=== PATIENT | male | born 1940 | race Caucasian/White ===

== ENCOUNTER 2017-12-23 17:07 | Inpatient (IN) ==
[2017-12-23] MEDS ORDERED: Naloxone 0.4 MG/ML INJ IVP PRN (21:53)
[2017-12-23] MEDS ORDERED: Dextrose Gel 15 GM/37.5 ML TUBE PO PRN ×2 (21:57)
[2017-12-23] MEDS ORDERED: *HR* Dextrose 50 % in Water (Syg) 50 ML SYRINGE IVP PRN (21:57)
[2017-12-23] MEDS ORDERED: D5% in Water 1,000 ML IVC PRN (21:57)
--- NOTE | 2017-12-23 21:57 | Internal Med History&Physical ---
Date of Encounter: 12/23/17 Time of Encounter: 21:55 Internal Medicine - H&P: HPI Chief complaint: Start speech Admitted From: Direct Admit Plans for Post Hospital Care: Home History of present illness: Mr. 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 The patient gets home health attendant 5 days a week for about 2-3 hours. He lives alone and has family around. This morning his son called him around 9:30 AM and noted that the patient's speech was slowed but not slurred. His daughter left work around 11:00 and went to check on her father who noted that he also again had slowed speech. The father had felt more weak than usual. No numbness or tingling. The aide came in the afternoon after the daughter had left and cold his daughter stated that she also thinks that his speech is slowed. Because of that he ended up going to [facility] where he had his symptoms resolved by then. He was back to his normal self. He underwent a workup from [facility] including a CT head which is reportedly negative, however, I do not have the report of that upon transfer. He was hemodynamically stable there and underwent a workup that was mostly unremarkable including CBC and a CMP. He had troponins checked which came back elevated at 1.08. He had no chest pain whatsoever. He continued denies chest pain upon transfer here. EKG was done there which came back with no ST or T-wave changes. Denies any other symptoms such as headache, blurry vision, fever, chills, nausea, vomiting, chest pain, shortness of breath , abdominal pain, diarrhea, constipation, urinary symptoms, or neurological symptoms other than above. 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 He sees an music arranger for this and is on a couple of eyedrops. All Systems PM: A 10-system review of systems was performed and is negative for pertinent findings except as documented above in the HPI. Review of systems: All systems reviewed are negative except as mentioned above - Constitutional Vitals: Temp Pulse Resp BP Pulse Ox 98.5 F 61 15 170/71 98 12/23/17 20:14 12/23/17 20:14 12/23/17 20:14 12/23/17 20:14 12/23/17 20:14 Exam: GEN: NAD HEENT: AT, NC, No cyanosis, oral mucosa is moist, No JVD Lymphatics: No lymphadenoapthy Eyes: Extrocular muscles intact, anicteric CVS:RRR. S1, S2, No m/r/g RESP: CTAB ABD: Soft, NT, ND, +BS EXT: No edema, No rashes, 2+ DP NEURO: Nonfocal, CN II-XII intact, No focal motor or sensory deficits. Right pupil is dilated and slowly reactive. Patient has positive Romberg. His gait is slow and almost shuffling. Psych: Cooperative, Not anxious or depressed - Assessment and plan (1) Dysarthria Current Visit: Yes Status: Acute Assessment and plan: According to the family the patient had slowed speech. This is not evident on examination here. He has no focal neurological deficits other than positive Romberg which I suspect is also his baseline. The patient does have baseline weakness and is walker dependent. He was able to ambulate in the room with no issues on my exam however his ambulation was slow. We will get an MRI of brain while he is here. Check B12 and TSH. We will obtain records of a CT head that was done at [facility] which was reportedly negative. (2) NSTEMI (non-ST elevated myocardial infarction) Current Visit: Yes Status: Acute Assessment and plan: Troponins at [facility] was 1.08. EKG with no ST or T-wave changes. No chest pain. The patient was not given any aspirin. He took 81 mg aspirin today at home. We will given 3 baby aspirin now. Check troponins level now. Check EKG. Check echocardiogram. If troponins are elevated, I will start him on a heparin drip and consult cardiology. We will trend cardiac enzymes. Check lipid panel and A1c. (3) Diabetes mellitus Current Visit: Yes Status: Acute Assessment and plan: Insulin sliding scale. Accu-Cheks. 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 She is not exactly sure what treatment he has had. She says he has been diagnosed for couple years. (5) DVT prophylaxis Current Visit: Yes Status: Acute Assessment and plan: Heparin subcutaneous - Time Spent With Patient Total time spent is greater than 50% in coordination of care (as documented) at patient's floor/unit and/or counseling patient:
[2017-12-23] MEDS ORDERED: *HR* Heparin 5,000 UNIT/ML VIAL SQ SCH (22:00)
[2017-12-23 22:26] LABS: Basophils % 0.4 %; Eosinophils % 0.2 %; Hematocrit 37.6 % (37.5-50.1); Immature Granulocytes % 0.2 % (0-4); Lymphocytes # 1.1 K/mcL (0.6-4.6); Mean Corpuscular HGB Conc 34.6 g/dL (31.6-35.5); Mean Corpuscular Hemoglobin 31.4 pg (28.0-33.3); Mean Corpuscular Volume 90.8 fL (83.0-100.0); Mean Platelet Volume 9.5 fL (9.4-12.4); Monocytes # 0.8 K/mcL (0.0-1.3); Monocytes % 15.3 %; Neutrophils # 3.5 K/mcL (1.6-8.9); Platelet Count 165 K/mcL (140-400); Red Blood Count 4.14 M/mcL (4.19-5.50); Red Cell Distribution Width 12.8 % (11.5-14.5); Segmented Neutrophils % 63.9 %
[2017-12-23 22:28] LABS: Estimated Average Glucose 123 mg/dl; Hemoglobin A1C 5.9 %
[2017-12-23 22:31] LABS: INR 1.3; Prothrombin Time 13.8 Seconds (9.4-12.1)
[2017-12-23 22:43] LABS: BUN/Creatinine Ratio 21 (6-26); Blood Urea Nitrogen 18 mg/dL (8-23); Calcium 8.8 mg/dL (8.6-10.3); Carbon Dioxide 23 mEq/L (23-29); Chloride 105 mEq/L (98-107); Glucose 110 mg/dL (70-105); Osmolality,Calculated 287 (280-300); Potassium 3.5 mEq/L (3.5-5.1); Sodium 137 mEq/L (136-145); eGFR For African Americans > 60 (> 60); eGFR For Non-African Americans > 60 (> 60)
[2017-12-23 22:46] LABS: Chol/HDL Ratio 4.9 (0-4.9)
[2017-12-23 22:59] LABS: Thyroid Stimulating Hormone 1.547 mcIU/mL (0.340-5.600)
[2017-12-23] MEDS ORDERED: *HR* Heparin 5,000 UNIT/ML VIAL IVP ONE (23:06)
[2017-12-23] MEDS ORDERED: *HR* Heparin 5,000 UNIT/ML VIAL IVP PRN ×2 (23:06)
--- NOTE | 2017-12-23 23:10 | Event Note ---
Date of Encounter: 12/23/17 Time of Encounter: 23:[address] depression in leads V3, V4, V5 with varying degrees. Trops still elevated here at .68. Not as high as they were at [facility]. Will start a heparin drip and make NPO after midnight and ask cardiology to see.
[2017-12-23] MEDS ORDERED: Aspirin Enteric Coated 81 MG Tablet PO ONE (23:15)
[2017-12-24] MEDS: Heparin 25,000 UNIT/500 ML D5W 25,000 UNIT/500 ML BAG IVC SCH (00:14)
[2017-12-24 00:42] LABS: Basophils % 0.3 %; Eosinophils % 0.2 %; Hematocrit 35.1 % (37.5-50.1); Hemoglobin 12.3 g/dL (12.9-16.9); Immature Granulocytes % 0.2 % (0-4); Lymphocytes # 1.1 K/mcL (0.6-4.6); Lymphocytes % 17.5 %; Mean Corpuscular Hemoglobin 31.5 pg (28.0-33.3); Mean Platelet Volume 9.4 fL (9.4-12.4); Monocytes % 15.7 %; Neutrophils # 4.1 K/mcL (1.6-8.9); Platelet Count 157 K/mcL (140-400); Red Cell Distribution Width 12.8 % (11.5-14.5); Segmented Neutrophils % 66.1 %
[2017-12-24 00:50] LABS: INR 1.2; Prothrombin Time 13.5 Seconds (9.4-12.1)
[2017-12-24 01:01] LABS: BUN/Creatinine Ratio 23 (6-26); Blood Urea Nitrogen 19 mg/dL (8-23); Calcium 8.7 mg/dL (8.6-10.3); Carbon Dioxide 23 mEq/L (23-29); Chloride 105 mEq/L (98-107); Glucose 111 mg/dL (70-105); Magnesium 1.6 mg/dL (1.6-2.6); Osmolality,Calculated 285 (280-300); Potassium 3.5 mEq/L (3.5-5.1); Sodium 136 mEq/L (136-145); eGFR For African Americans > 60 (> 60); eGFR For Non-African Americans > 60 (> 60)
[2017-12-24] MEDS: Aspirin Enteric Coated 81 MG Tablet PO SCH (09:42)
[2017-12-24] MEDS: (Ezetimibe 10 MG) PO SCH (09:43)
[2017-12-24] MEDS: Insulin LISPRO 300 UNITS/3 ML VIAL SQ SCH ×4 (09:43→21:40)
--- NOTE | 2017-12-24 10:31 | Cardiology Consult Note ---
Date of Encounter: 12/24/17 Time of Encounter: 10:00 Assessment and Plan (1) Speech disturbance Current Visit: Yes Status: Acute Per cardiology: -Admitted with speech disturbance. -CT head Royer negative. -MRI pending -Management per primary service. Qualifiers: Speech disturbance type: unspecified speech disturbance Qualified Code(s): R47.9 - Unspecified speech disturbances (2) NSTEMI (non-ST elevated myocardial infarction) Current Visit: Yes Status: Acute Per cardiology: -Troponins 1.08 (royer), 0.68, 0.69, 0.49. -Denies chest pain. -No acute ischemic ECG changes. -On asa, heparin drip. NOt on beta afsaneh due to history of bradycardia. Not on statin due to intolerance. -TTE 2015 with LVEF 55-60%, mild concentric LVH, mild diastolic dysfunction, no segmental wall motion abnormalities. -Current TTE pending. Current MRI pending. -Continue heparin drip -If CVA/TIA ruled out, can consider LHC. -Will continue to monitor. Discussion w patient/family: The assessment and plan as outlined above was discussed with the patient and/or family members who expressed understanding and agreement. All questions were answered. Thank you for involving us in the care of your patient. Please call with any questions. Discussed and reviewed with History of Present Illness Consult date: 12/23/17 Requesting physician: Casi Dyer Consult reason: elevated troponin Chief complaint: slurred speech History of present illness: Mr. Lockwood is a 77 year old male with a relevant past medical history of hyperlipidemia, DM, hypothyroidism, guiilian-barre, peripheral neuropathy, vertigo. Per daughter, patient was on the phone with son who noted slurred speech and said it sounded "like dad was drunk." Son called daughter who then went and checked on her father. Daughter states his speech was different. Patient was also complaining of increased weakness for a few days. Patient denies chest pain or shortness of breath. Past Med Surg Social Fam HX - Past Medical History Attestation: Yes The following information was validated with the patient. Source: patient, old records reviewed, obtained from family Medical history: diabetes, hyperlipidemia Medications and Allergies Aspirin [Lo-Dose Aspirin EC] 81 mg PO DAILY 12/23/17 [History] Ezetimibe [Zetia] 10 mg PO DAILY 12/23/17 [History] Levothyroxine [Synthroid] 50 mcg PO DAILY 12/23/17 [History] Meclizine HCl [Verticalm] 25 mg PO QID 12/23/17 [History] metFORMIN [Glucophage] 500 mg PO BIDWM 12/23/17 [History] 3 Allergy/AdvReac Type Severity Reaction Status Date / Time simvastatin [From Zocor] AdvReac Dizziness Verified 12/23/17 22:20 All Systems Review: The remainder of the systems were reviewed and are negative - Constitutional Constitutional: weakness - Cardiovascular Cardiovascular: as per HPI - Neurological Neurological: abnormal speech Physical Examination Vital Signs, Last 4 Hours Temp Pulse Resp BP Pulse Ox 12/24/17 07:00 98.4 F 60 18 128/61 96 General: Conversant, No Apparent Distress HEENT: Atraumatic, Normocephaly, Mucus Membranes Moist Neck: No JVD, Normal carotid pulses Cardiac: Reg Rate and Rhythm, Normal S1 and S2, No Murmur Lungs: Normal Breath Sounds, No Wheeze, Rales, Rhonchi Neuro: Alert and responsive, No focal deficits noted Abdomen: Soft, Non-Tender Skin: No rashes noted on visualized skin Musculoskeletal: No Chest Wall Tenderness Extremities: No Clubbing, No Cyanosis, No Edema, Normal Pulses Results 12/24/17 00:24 12/24/17 00:24 Acetaminophen (Tylenol) 650 mg PO Q6HR PRN PRN Reason: Mild Pain/Fever Stop: 06/24/18 21:54 Aspirin (Aspirin Ec) 81 mg PO DAILY LAURITA Stop: 06/25/18 09:01 Last Admin: 12/24/17 09:42 Dose: 81 mg Dextrose/Water (Dextrose 50% (Syg)) 25 ml IVP AD PRN PRN Reason: Hypoglycemia Stop: 06/24/18 21:58 Glucagon (Glucagen) 1 mg IM ONCE PRN PRN Reason: Hypoglycemia Stop: 06/24/18 21:58 Glucose (Gluctose) 15 gm PO ONCE PRN PRN Reason: Hypoglycemia Stop: 06/24/18 21:58 Glucose (Gluctose) 30 gm PO ONCE PRN PRN Reason: Hypoglycemia Stop: 06/24/18 21:58 Heparin Sodium (Porcine) (Heparin) 4,000 unit IVP Q6HR PRN PRN Reason: SEE COMMENTS Stop: 06/24/18 23:07 Heparin Sodium (Porcine) (Heparin) 2,000 unit IVP Q6H PRN PRN Reason: SEE COMMENTS Stop: 06/24/18 23:07 Hydralazine HCl (Hydralazine) 10 mg IVP Q6HR PRN PRN Reason: Hypertension Stop: 06/24/18 21:58 Dextrose (Dextrose 5%) 1,000 mls @ 100 mls/hr IVC .Q10H PRN PRN Reason: HYPOGLYCEMIA Stop: 06/24/18 21:58 Heparin Sodium/Dextrose (Heparin 25,000 Unit/500 Ml D5w) 25,000 unit in 500 mls @ 18.528 mls/hr IVC .Q24H LAURITA; 12 UNIT/KG/HR PRN Reason: Protocol Stop: 06/24/18 23:16 Last Titration: 12/24/17 07:28 Dose: 12 unit/kg/hr, 18.528 mls/hr Insulin Human Lispro (Humalog) 0 units SQ HS LAURITA PRN Reason: Protocol Stop: 06/25/18 21:01 Insulin Human Lispro (Humalog) 0 units SQ TIDAC LAURITA PRN Reason: Protocol Stop: 06/25/18 07:31 Last Admin: 12/24/17 09:43 Dose: Not Given Levothyroxine Sodium (Synthroid) 50 mcg PO DAILY LAURITA Stop: 06/25/18 09:01 Last Admin: 12/24/17 09:42 Dose: 50 mcg Meclizine HCl (Antivert) 25 mg PO QID LAURITA Stop: 06/25/18 09:01 Last Admin: 12/24/17 09:42 Dose: 25 mg Naloxone HCl (Narcan) 0.4 mg IVP Q2MIN PRN PRN Reason: SEE COMMENTS Stop: 06/24/18 21:54 Pharmacy Profile Note (Patient Taking Own Medication) 0 each PO DAILY [facility] Stop: 06/25/18 09:01 Last Admin: 12/24/17 09:43 Dose: Not Given Laboratory Tests 12/23/17 12/24/17 12/24/17 22:09 00:24 00:24 Hgb 12.3 L Creatinine Troponin I 0.68 H* 0.69 H* 12/24/17 12/24/17 00:24 09:29 Hgb Creatinine 0.84 Troponin I 0.49 H* - Imaging and Cardiology Chest Xray: report reviewed Echo: pending, report reviewed - EKG Interpretation EKG results cardiology: personally reviewed (ECG with SR, HR 64.), other ( Telemetry reviewed with average HR previous 12 hours noted to be 61, SR.) Consult Discharge Plan - Plan Referrals: Lynette Lutz CNP [Primary Care Provider] - 01/01/18 12:30 pm
[2017-12-24] MEDS ORDERED: Perflutren Lipid Microsphere 1.3 ML in 0.9 % Sodium Chloride 8.7 ML IVP ONE (14:02)
--- NOTE | 2017-12-24 15:47 | Internal Med Progress Note ---
<Torres Rome - Last Filed: 12/24/17 16:45> Date of Encounter: 12/24/17 Time of Encounter: 09:00 - Assessment and plan (1) NSTEMI (non-ST elevated myocardial infarction) Current Visit: Yes Status: Acute Assessment and plan: No overt chest pain; possibly atypical presentation given patient's history of diabetes. Troponins at [facility] was 1.08; down trending x3 during present hospitalization. Repeat EKG with ST depressions in V3, V4, and V5. - Cardiology onboard. - On heparin infusion - TTE with interpretation pending. - NPO at midnight for possible LHC tomorrow; cardio team concerned of possible CVA which has been ruled unlikely with serial neuro exams and negative MRI. - Lipid panel checked; see labs. - Hgb A1c was 5.9%. (2) Dysarthria Current Visit: Yes Status: Acute Assessment and plan: Slow speech according to son and daughter. Patient has been generally weak and fatigued; does have baseline fatigue. Doubt true neurologic origin. No exams have been negative notwithstanding known chronic deficits. CT of the head was negative. MRI of the head was negative for acute infarctions; see report. MRI 12/24/17 1. No acute infarct or acute intracranial process identified. 2. 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 3. Mild diffuse cerebral volume loss and mild chronic small vessel ischemic changes. (3) Diabetes mellitus Current Visit: Yes Status: Acute Assessment and plan: Continue low dose SSI. Accu-Cheks. A1C check on current hospitalization was 5.9%. 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 Sees neurologist for this according to patient's daughter. Not acute. (5) DVT prophylaxis Current Visit: Yes Status: Acute Assessment and plan: On heparin infusion for NSTEMI - Time Spent With Patient Total time spent is greater than 50% in coordination of care (as documented) at patient's floor/unit and/or counseling patient: - Subjective Interval history: Reviewed HPI with patient and daughter. Patient states is generally been feeling fatigued in week over the last couple of days. Admission to hospital initially prompted by son who stated patient sounded like he was speaking slowly on a phone call. Patient denies having had any difficulty speaking, facial droop, focal motor or sensory deficits. Patient presently comfortable without acute complaints. - Constitutional Vitals: Temp Pulse Resp BP Pulse Ox 98 F 61 20 146/89 97 12/24/17 11:12/24/17 11:12/24/17 11:12/24/17 11:12/24/17 11:00 CONSTITUTIONAL: Alert and oriented X3, well-nourished, well appearing, in no apparent distress HEAD: Normocephalic; atraumatic. EYES: PER, no scleral icterus, no drainage, no conjunctival injection NOSE: The nose is normal in appearance without rhinorrhea Oropharynx: pink/moist, no tonsillar edema/erythema/exudates RESP: NRD without use of accessory musculature, CTA b/l with no wheezes/rales/ rhonchi CARD: Regular rhythm, without murmurs, rubs, or gallop ABD: grossly normal, soft, non-tender, no guarding/distention/rigidity SKIN: normal appearance, no pallor/diaphoresis,mottling,jaundice,cyanosis EXT: DP/Rad pulses 2+ and symmetrical; no lateralizing edema; no other lesions seen Neuro: cranial nerves III-XII grossly intact with the exception of light response to the left eye which is a chronic deficit. Motor sensory function intact across all extremity joints. Patient has 2+ reflexes to bilateral biceps tendons; hyporeflexive to patellar tendons. No ankle clonus. No dysdiadochokinesia. Normal qkigca-vzsh-czkiot test. PSYCH: appropriate mood/affect Internal Medicine: Result - Labs CBC & Chem 7: 12/24/17 00:24 12/24/17 00:24 Labs: Short CBC 12/23/17 12/24/17 Range/Units 22:09 00:24 WBC 5.5 6.2 (4.3-11.1) K/mcL Hgb 13.0 12.3 L (12.9-16.9) g/dL Hct 37.6 35.1 L (37.5-50.1) % Plt Count 165 157 (140-400) K/mcL Neutrophils # 3.5 4.1 (1.6-8.9) K/mcL BMP 12/23/17 12/24/17 22:09 00:24 Sodium 137 136 Potassium 3.5 3.5 Chloride 105 105 Carbon Dioxide 23 23 BUN 18 19 Creatinine 0.86 0.84 Glucose 110 H 111 H Calcium 8.8 8.7 Cardiac Enzymes 12/23/17 12/24/17 12/24/17 Range/Units 22:09 00:24 09:29 Troponin I 0.68 H* 0.69 H* 0.49 H* (< 0.04) ng/mL - ABG Interpretation ABG results: PT/INR, D-dimer PT 13.5 Seconds (9.4-12.1) H 12/24/17 00:24 - Impressions Impressions Brain MRI 12/24/17 10:06 IMPRESSION: 1. No acute infarct or acute intracranial process identified. 2. 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 3. Mild diffuse cerebral volume loss and mild chronic small vessel ischemic changes. D/ / Murali Waite MD / Murali Waite MD Interpreting Provider: Murali Waite MD Consult Discharge Plan - Plan Referrals: Lynette Lutz CNP [Primary Care Provider] - 01/01/18 12:30 pm <Joaquín Morales - Last Filed: 12/24/17 16:52> Date of Encounter: 12/24/17 - Assessment and plan (1) Diabetes mellitus Current Visit: Yes Status: Acute Qualifiers: Diabetes mellitus type: type 2 Diabetes mellitus custodial insulin use: without termite control technician use Diabetes mellitus complication status: with ophthalmic complications Diabetes mellitus complication detail: with other ophthalmic complication Qualified Code(s): 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 (2) Guillain Coughlin syndrome Current Visit: Yes Status: Acute (3) NSTEMI (non-ST elevated myocardial infarction) Current Visit: Yes Status: Acute (4) Dysarthria Current Visit: Yes Status: Acute (5) DVT prophylaxis Current Visit: Yes Status: Acute - Time Spent With Patient Total time spent is greater than 50% in coordination of care (as documented) at patient's floor/unit and/or counseling patient: - Constitutional Vitals: Temp Pulse Resp BP Pulse Ox 98.2 F 60 18 115/54 91 12/24/17 16:44 12/24/17 16:44 12/24/17 16:44 12/24/17 16:44 12/24/17 16:44 Internal Medicine: Result - Labs CBC & Chem 7: 12/24/17 00:24 12/24/17 00:24 Labs: Short CBC 12/23/17 12/24/17 Range/Units 22:09 00:24 WBC 5.5 6.2 (4.3-11.1) K/mcL Hgb 13.0 12.3 L (12.9-16.9) g/dL Hct 37.6 35.1 L (37.5-50.1) % Plt Count 165 157 (140-400) K/mcL Neutrophils # 3.5 4.1 (1.6-8.9) K/mcL BMP 12/23/17 12/24/17 22:09 00:24 Sodium 137 136 Potassium 3.5 3.5 Chloride 105 105 Carbon Dioxide 23 23 BUN 18 19 Creatinine 0.86 0.84 Glucose 110 H 111 H Calcium 8.8 8.7 Cardiac Enzymes 12/23/17 12/24/17 12/24/17 Range/Units 22:09 00:24 09:29 Troponin I 0.68 H* 0.69 H* 0.49 H* (< 0.04) ng/mL - ABG Interpretation ABG results: PT/INR, D-dimer PT 13.5 Seconds (9.4-12.1) H 12/24/17 00:24 - Impressions Impressions Brain MRI 12/24/17 10:06 IMPRESSION: 1. No acute infarct or acute intracranial process identified. 2. 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 3. Mild diffuse cerebral volume loss and mild chronic small vessel ischemic changes. D/ / Murali Waite MD / Murali Waite MD Interpreting Provider: Murali Waite MD - Attending Attestation I examined this patient and my medical decision-making was reviewed with the Resident Physician. I agree with the documented findings, disposition and treatment plan as described except to the extent set forth below. he is seen and examined at the bedside with family.. He is admitted and being managed for an STEMI, CVA has been ruled out by MRI. His main complaint is of weakness. Echocardiogram is pending, cardiology is following. He has no chest pain. Physical examination is negative for neurologic deficits, power at least 4/5 in all extremities, no speech deficits, chest is clear to auscultation, heart sounds S1-S2. Plan is to Continue heparin drip, add ACEI and Lipitor, follow ECHO, follow cardiology evaluation. No acute infarct per MRI. PTOT eval after LHC. NPO from [place]. Rest of details as in the resident physician's documentation
--- NOTE | 2017-12-24 16:20 | Electrocardiograph Report ---
[place] [id number] Test Date: 2017-12-23 Pat Name: Meagan Lockwood Department: 111 Room: [facility] Gender: M Captain Airline Pilot: [facility] : 1940 Requested By: Casi Dyer Order Number: [id number] Reading MD: Gavin Staton Measurements Intervals [place] Rate: 64 P: -10 [place]: 180 QRS: 15 QRSD: 96 T: 38 QT: 400 QTc: 410 Interpretive Statements SINUS RHYTHM Electronically Signed On 12-24-2017 16:18:25 EDT by Gavin Staton
[2017-12-24] MEDS: Cyanocobalamin (B-12) 1,000 MCG TABLET PO SCH (16:45)
[2017-12-24] MEDS: (Brimonidine Tartrate/Timolol [Combigan 0.2%-0.5% Eye) OP SCH (19:00)
[2017-12-24] MEDS: (Bimatoprost [Lumigan] 1 DROP) OP SCH (19:00)
[2017-12-25] MEDS: Heparin 25,000 UNIT/500 ML D5W 25,000 UNIT/500 ML BAG IVC SCH (03:35)
[2017-12-25 05:03] LABS: Basophils % 0.3 %; Eosinophils % 0.1 %; Hematocrit 35.1 % (37.5-50.1); Hemoglobin 12.2 g/dL (12.9-16.9); Immature Granulocytes % 0.3 % (0-4); Lymphocytes # 1.1 K/mcL (0.6-4.6); Lymphocytes % 15.2 %; Mean Corpuscular HGB Conc 34.8 g/dL (31.6-35.5); Mean Corpuscular Hemoglobin 31.4 pg (28.0-33.3); Mean Corpuscular Volume 90.5 fL (83.0-100.0); Mean Platelet Volume 9.8 fL (9.4-12.4); Monocytes # 0.7 K/mcL (0.0-1.3); Monocytes % 10.3 %; Neutrophils # 5.3 K/mcL (1.6-8.9); Platelet Count 155 K/mcL (140-400); Red Blood Count 3.88 M/mcL (4.19-5.50); Red Cell Distribution Width 12.8 % (11.5-14.5); Segmented Neutrophils % 73.8 %
[2017-12-25 05:22] LABS: BUN/Creatinine Ratio 21 (6-26); Blood Urea Nitrogen 21 mg/dL (8-23); Calcium 8.5 mg/dL (8.6-10.3); Carbon Dioxide 23 mEq/L (23-29); Chloride 106 mEq/L (98-107); Glucose 176 mg/dL (70-105); Osmolality,Calculated 293 (280-300); Potassium 4.1 mEq/L (3.5-5.1); Sodium 138 mEq/L (136-145); eGFR For African Americans > 60 (> 60); eGFR For Non-African Americans > 60 (> 60)
[2017-12-25] MEDS: Insulin LISPRO 300 UNITS/3 ML VIAL SQ SCH ×4 (07:42→21:13)
[2017-12-25] MEDS: Aspirin Enteric Coated 81 MG Tablet PO SCH (07:49)
[2017-12-25] MEDS: Cyanocobalamin (B-12) 1,000 MCG TABLET PO SCH (07:49)
[2017-12-25] MEDS: (Bimatoprost [Lumigan] 1 DROP) OP SCH (07:50)
[2017-12-25] MEDS: (Ezetimibe 10 MG) PO SCH (07:51)
[2017-12-25] MEDS: (Brimonidine Tartrate/Timolol [Combigan 0.2%-0.5% Eye) OP SCH (07:51)
--- NOTE | 2017-12-25 10:06 | Event Note ---
Date of Encounter: 12/25/17 Time of Encounter: 09:00 - Cardiology Event Note MRI reviewed with no acute findings. Discussed with primary service, ok for LHC. Plan for LHC today for NSTEMI. RIsks versus benefits of LHC explained to patient and family. States understanding and agreeable to proceed. Further recommendations pending LHC.
--- NOTE | 2017-12-25 11:16 | Internal Med Progress Note ---
<Torres Rome - Last Filed: 12/25/17 11:13> Date of Encounter: 12/25/17 Time of Encounter: 11:13 - Assessment and plan (1) NSTEMI (non-ST elevated myocardial infarction) Current Visit: Yes Status: Acute Assessment and plan: No overt chest pain; possibly atypical presentation given patient's history of diabetes. Troponins at [place] was 1.08; down trending x3 during present hospitalization. Repeat EKG with ST depressions in V3, V4, and V5. - Cardiology onboard. - On heparin infusion - TTE completed - NPO pending [facility] - Lipid panel checked; see labs. - Hgb A1c was 5.9%. ECHO: LVEF 60%. Mild concentric left ventricular hypertrophy. Mild left ventricular diastolic dysfunction. Normal right ventricular structure and function. Mild aortic regurgitation, mild mitral regurgitation, mild pulmonic regurgitation. No pulmonary hypertension. (2) Dysarthria Current Visit: Yes Status: Resolved Assessment and plan: Slow speech according to son and daughter. Patient has been generally weak and fatigued; does have baseline fatigue. Doubt true neurologic origin. No exams have been negative notwithstanding known chronic deficits. CT of the head was negative. MRI of the head was negative for acute infarctions; see report. MRI 12/24/17 1. No acute infarct or acute intracranial process identified. 2. 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 3. Mild diffuse cerebral volume loss and mild chronic small vessel ischemic changes. (3) Diabetes mellitus Current Visit: Yes Status: Acute Assessment and plan: Continue low dose SSI. Accu-Cheks. A1C check on current hospitalization was 5.9%. Pt is NPO, so will make no adjustments at this time to medications. 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 Sees neurologist for this according to patient's daughter. Not acute. (5) DVT prophylaxis Current Visit: Yes Status: Acute Assessment and plan: On heparin infusion for NSTEMI - Time Spent With Patient Total time spent is greater than 50% in coordination of care (as documented) at patient's floor/unit and/or counseling patient: - Subjective Interval history: Comfortable and bedside chair without any acute complaints. Family present with questions regarding imaging results; discussed MRI, CT, and ECHO findings. Pt is NPO with plan to perform LHC this afternoon. - Constitutional Vitals: Temp Pulse Resp BP Pulse Ox 98.2 F 59 16 111/53 96 12/25/17 07:03 12/25/17 07:03 12/25/17 07:03 12/25/17 08:01 12/25/17 08:01 CONSTITUTIONAL: Alert and oriented X3, well-nourished, well appearing, in no apparent distress HEAD: Normocephalic; atraumatic. EYES: PER, no scleral icterus, no drainage, no conjunctival injection NOSE: The nose is normal in appearance without rhinorrhea Oropharynx: pink/moist RESP: NRD without use of accessory musculature, CTA b/l with no wheezes/rales/ rhonchi CARD: Regular rhythm, without murmurs, rubs, or gallop SKIN: normal appearance, no pallor/diaphoresis,mottling,jaundice,cyanosis EXT: Rad pulses 2+ and symmetrical; no lateralizing edema; no other lesions seen Neuro: no facial asymmetry, speech deficits, or gross motor weakness in any extremity PSYCH: appropriate mood/affect Internal Medicine: Result - Labs CBC & Chem 7: 12/25/17 04:41 12/25/17 04:41 Labs: Short CBC 12/25/17 Range/Units 04:41 WBC 7.1 (4.3-11.1) K/mcL Hgb 12.2 L (12.9-16.9) g/dL Hct 35.1 L (37.5-50.1) % Plt Count 155 (140-400) K/mcL Neutrophils # 5.3 (1.6-8.9) K/mcL BMP 12/25/17 04:41 Sodium 138 Potassium 4.1 Chloride 106 Carbon Dioxide 23 BUN 21 Creatinine 0.98 Glucose 176 H Calcium 8.5 L - ABG Interpretation ABG results: PT/INR, D-dimer PT 13.5 Seconds (9.4-12.1) H 12/24/17 00:24 - Impressions Impressions Brain MRI 12/24/17 10:06 IMPRESSION: 1. No acute infarct or acute intracranial process identified. 2. 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 3. Mild diffuse cerebral volume loss and mild chronic small vessel ischemic changes. D/ / Murali Waite MD / Murali Waite MD Interpreting Provider: Murali Waite MD Echocardiogram 12/24/17 21:53 Impressions: LVEF 60%. Mild concentric left ventricular hypertrophy. Mild left ventricular diastolic dysfunction. Definity echo contrast was used. Normal right ventricular structure and function. Mild aortic regurgitation. Mild mitral regurgitation. Mild pulmonic regurgitation. No pulmonary hypertension. Left Ventricular Wall Motion: Rest Echo Findings All wall segments showed normal motion. Findings: Study Quality * Technically adequate exam. ECG Findings * Normal sinus rhythm. Left Ventricle * LVEF 60%. * Mild concentric left ventricular hypertrophy. * Basal sigmoid septum. * Mild left ventricular diastolic dysfunction. * Definity echo contrast was used. Right Ventricle * Normal right ventricular structure and function. Left Atrium * Normal left atrial size. Right Atrium * Normal right atrial size. Aortic Valve * Trileaflet aortic valve. * No aortic stenosis. * Mild aortic regurgitation. Mitral Valve * Mild mitral regurgitation. * Normal mitral valve structure. * No mitral stenosis. Tricuspid Valve * Tricuspid valve not well visualized. * Trace tricuspid regurgitation. Pulmonic Valve * Pulmonic valve is not well visualized. * No pulmonic stenosis. * Mild pulmonic regurgitation. Pulmonary Artery * Pulmonary artery not well visualized. Aorta * Normally sized aortic root. Pericardium * There is no pericardial effusion present. Interatrial Septum * No evidence of PFO by color Doppler. IVC * The IVC is not well evaluated. 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 (3) NSTEMI (non-ST elevated myocardial infarction) Current Visit: Yes Status: Acute (4) Dysarthria Current Visit: Yes Status: Resolved (5) DVT prophylaxis Current Visit: Yes Status: Acute - Time Spent With Patient Total time spent is greater than 50% in coordination of care (as documented) at patient's floor/unit and/or counseling patient: - Constitutional Vitals: Temp Pulse Resp BP Pulse Ox 98.5 F 64 16 146/58 96 12/25/17 11:33 12/25/17 11:33 12/25/17 11:33 12/25/17 11:33 12/25/17 11:33 Internal Medicine: Result - Labs CBC & Chem 7: 12/25/17 04:41 12/25/17 04:41 Labs: Short CBC 12/25/17 Range/Units 04:41 WBC 7.1 (4.3-11.1) K/mcL Hgb 12.2 L (12.9-16.9) g/dL Hct 35.1 L (37.5-50.1) % Plt Count 155 (140-400) K/mcL Neutrophils # 5.3 (1.6-8.9) K/mcL BMP 12/25/17 04:41 Sodium 138 Potassium 4.1 Chloride 106 Carbon Dioxide 23 BUN 21 Creatinine 0.98 Glucose 176 H Calcium 8.5 L - ABG Interpretation ABG results: PT/INR, D-dimer PT 13.5 Seconds (9.4-12.1) H 12/24/17 00:24 - Impressions Impressions Echocardiogram 12/24/17 21:53 Impressions: LVEF 60%. Mild concentric left ventricular hypertrophy. Mild left ventricular diastolic dysfunction. Definity echo contrast was used. Normal right ventricular structure and function. Mild aortic regurgitation. Mild mitral regurgitation. Mild pulmonic regurgitation. No pulmonary hypertension. Left Ventricular Wall Motion: Rest Echo Findings All wall segments showed normal motion. Findings: Study Quality * Technically adequate exam. ECG Findings * Normal sinus rhythm. Left Ventricle * LVEF 60%. * Mild concentric left ventricular hypertrophy. * Basal sigmoid septum. * Mild left ventricular diastolic dysfunction. * Definity echo contrast was used. Right Ventricle * Normal right ventricular structure and function. Left Atrium * Normal left atrial size. Right Atrium * Normal right atrial size. Aortic Valve * Trileaflet aortic valve. * No aortic stenosis. * Mild aortic regurgitation. Mitral Valve * Mild mitral regurgitation. * Normal mitral valve structure. * No mitral stenosis. Tricuspid Valve * Tricuspid valve not well visualized. * Trace tricuspid regurgitation. Pulmonic Valve * Pulmonic valve is not well visualized. * No pulmonic stenosis. * Mild pulmonic regurgitation. Pulmonary Artery * Pulmonary artery not well visualized. Aorta * Normally sized aortic root. Pericardium * There is no pericardial effusion present. Interatrial Septum * No evidence of PFO by color Doppler. IVC * The IVC is not well evaluated. - Attending Attestation I examined this patient and my medical decision-making was reviewed with the Resident Physician. I agree with the documented findings, disposition and treatment plan as described except to the extent set forth below. He is seen and examined at the bedside with family.. He is admitted and being managed for NSTEMI, Suspect TIA based on symptoms of dysarthria which has resolved prior to arrival. Echocardiogram showed LVEF 60% , mild LVH, LVDD, normal wall motion , cardiology is following. He is scheduled for [facility]. Physical examination is negative for neurologic deficits, power at least 4/5 in all extremities, no speech deficits, chest is clear to auscultation , heart sounds S1-S2. Plan is to Continue heparin drip, statin, ACEI, no BB due to bradycardia, No acute infarct per MRI. Continue other management PTOT eval noted -for home health Rest of details as in the resident physician's documentation
[2017-12-25] MEDS ORDERED: Verapamil 5 MG/2 ML VIAL ONE (14:47)
[2017-12-25] MEDS ORDERED: Heparin 1,000 UNITS/500 mL 500 ML ONE (14:47)
[2017-12-25] MEDS ORDERED: 0.9 % Sodium Chloride 1,000 ML ONE ×2 (14:47→15:29)
[2017-12-25] MEDS ORDERED: *HR* Heparin 10,000 UNIT/10 ML VIAL ONE (14:47)
[2017-12-25] MEDS ORDERED: ISOVUE-370 200 ML INFUS..BTL IV ONE (14:48)
[2017-12-25] MEDS ORDERED: Nitroglycerin 1,000 MCG/10 ML VIAL IV ONE (14:48)
[2017-12-25] MEDS ORDERED: *HR* Midazolam HCl 2 MG/2 ML VIAL ONE (15:29)
[2017-12-25] MEDS ORDERED: *HR* FentaNYL (PF) 100 MCG/2 ML VIAL ONE (15:29)
[2017-12-25] MEDS ORDERED: Ondansetron 4 MG/2 ML VIAL IVP PRN (16:00)
--- NOTE | 2017-12-25 16:16 | Invasive Diagnostic Lab Proc ---
Name: Meagan Lockwood Date of Study: 12/25/2017 Date: 1940 Ht: 68.9in Medical Record#: [id number] Age: 77 Wt: 169.76lb Gender: Male BSA: 1.92 Order #: [id number] BMI: 25.14 Physicians Procedure Physician: Jose Enrique Dickinson MD, FACC Referring MD: Lynette Lutz CNP Referring MD: Staff Name Position Time In Terrence Méndez RN Monitor 03:19 PM Brandan, Qi RT (R) Scrub 03:19 PM Gurwinder Wren RN Restaurant Maintenance Technician 03:19 PM Indications Indication Non-Stemi Procedures Performed Procedure L HRT ARTERY/VENTRICLE ANGIO Pre-Procedure Checklist Informed consent is complete signed and on chart. H&P is on chart. ID band is on and ID verified with patient. Patient NPO for procedure The procedure was described for the patient and questions were answered. Blood Pressure: 128/61 ECG is on chart. Rhythm: NSR Plan of Care Patient will tolerate the procedure without complications. Adequate level of comfort will be maintained. Hemodynamics will remain stable Patient will recover from procedure without complications. Respiratory function will be maintained. Cardiac rhythm will remain stable. Patient temperature will be maintained. Patient and/or family have verbalized understanding of the procedure. Patient Education Intravenous Access Time IV Size Location DC'd Fluid/Drip Rate Units RN 02:57 PM 20g 1 1/4" Patent On Arrival Lt Forearm 0.9NaCl 25 ml/hr Gurwinder Wren RN Allergies simvastatin Vital Signs Time BP (mmHg) HR (bpm) O2 Sat. RR (bpm) LOC 02:57 PM 128 / 61 60 96 % 18 5 = Fully awake and oriented or at pre-proc level 03:20 PM / % 5 = Fully awake and oriented or at pre-proc level 03:20 PM / % 4 = Oriented but drowsy 03:35 PM / % 4 = Oriented but drowsy 03:24 PM 174 / 148 61 97 % 03:29 PM 165 / 78 61 100 % 03:34 PM 157 / 83 61 100 % 03:39 PM 124 / 61 58 99 % 03:44 PM 103 / 48 58 98 % 03:49 PM 109 / 51 57 98 % Procedural Medications Time Medication Dose Units Method Given By 03:19 PM Oxygen 2 L/min nasal cannula Gurwinder Wren RN 03:33 PM Versed 2 mg Intravenous Gurwinder Wren RN 03:33 PM Fentanyl 50 mcg Intravenous Gurwinder Wren RN 03:40 PM Lidocaine 2% 0.5 ml Subcutaneous Jose Enrique Dickinson MD, [facility] 03:43 PM Heparin 2000 units Nitroglycerin 200 mcg Verapamil 2.5 mg Intraarterial Jose Enrique Dickinson MD, [facility] ASA Classification: CLASS II- Mild systemic disease (i.e. well-controlled diabetes, hypertension, asthma, cigarette smoking) Bev Score Preprocedure Postprocedure Activity Activity Circulation Circulation Consciousness Consciousness O2 Saturation O2 Saturation Respiratory Respiratory Total Score Total Score Contrast Agent: Isovue Diagnostic Contrast: 49 ml Total Contrast: 49 ml Fluoro Dose: 230 mGy Procedure Log Time Note Enter By 02:56 PM CathStat 03:19 PM Pt arrived to brush clearing laborer 2 at 15:19 csmith 03:19 PM Terrence Méndez RN Position: Monitor Time in: 15:19 csmith 03:19 PM Sites, Qi RT (R) Position: Scrub Time in: 15:19 csmith 03:19 PM Gurwinder Wren RN Position: Restaurant Maintenance Technician Time in: 15:19 csmith 03:19 PM Patient charges- Angio tray pack, Navilyst 3mm J, Pulse Oximetry and ACIST tubing and transducer csmith 03:19 PM Hair removed from procedure site in procedure lab using clippers. Right wrist & right groin prepped with Chloraprep by Gurwinder Wren RN, then patient was draped. Skin intact. csmith 03:19 PM Meet and greet completed csmith 03:19 PM Sign in performed according to hospital policy. csmith 03:19 PM Procedure start 15:19 csmith 03:20 PM Case Start 03:20 PM Time: 15:19 Oxygen on at 2 L/min per nasal cannula by Gurwinder Wren RN csmith 03:20 PM Time: 15:20 Patient comfortable and pain free: Yes csmith 03:20 PM Time: 15:20LOC: 5 = Fully awake and oriented or at pre-proc level csmith 03:23 PM Vitals capture started with the following parameters, Patient=Adult, Interval=5 min, Initial Mkigzjwz=321 mmHg, Deflation Rate=5 mmHg, Cuff placed on Right Arm 03:24 PM HR=61 bpm, CDNF=972/148 mmhg, SpO2=97.0 %, Comment=sr 03:29 PM HR=61 bpm, IPOS=659/78 mmhg, DeE2=348.0 %, Comment=sr 03:31 PM Recorded ECG: HR=60 Condition=Condition 1 03:33 PM Time: 15:33 Versed 2 mg Intravenous Given by Gurwinder Wren RN csmith 03:33 PM Time: 15:33 Fentanyl 50 mcg Intravenous Given by Gurwinder Wren RN csmith 03:34 PM HR=61 bpm, PJFC=526/83 mmhg, AqI5=867.0 %, Comment=sr 03:35 PM Time: 15:20LOC: 4 = Oriented but drowsy csmith 03:35 PM Time: 15:20 Patient comfortable and pain free: Yes csmith 03:39 PM HR=58 bpm, XERZ=307/61 mmhg, SpO2=99.0 %, Comment=sr 03:39 PM ASA Class CLASS II- Mild systemic disease (i.e. well-controlled diabetes, hypertension, asthma, cigarette smoking) csmith 03:40 PM Time out performed according to hospital policy csmith 03:40 PM Time: 15:40 0.5 ml Lidocaine 2% to right radial Subcutaneous Given by Jose Enrique Dickinson MD, FACC csmith 03:43 PM Access obtained by percutaneous puncture. 5/6Fr 10cm Terumo [place] sheath placed in right Radial artery. [id number] csmith 03:43 PM Time: 15:43 Patient given 2000 units Heparin, 200 mcg Nitroglycerin, and 2.5 mg Verapamil Intraarterial by Jose Enrique Dickinson MD, FACC. This is given to reduce risk of vessel spasm and thrombosis. csmith 03:43 PM 0.035 260cm Navilyst 3mmJ wire [id number] csmith 03:43 PM 5Fr TIG catheter inserted over the wire DNC csmith 03:43 PM RCA angiography performed in [place]. csmith 03:43 PM Catheter removed csmith 03:44 PM HR=58 bpm, FNGI=570/48 mmhg, SpO2=98.0 %, Comment=sr 03:44 PM 5Fr JL3.5 catheter inserted over the wire [id number] csmith 03:45 PM LCA angiography performed in multiple views. csmith 03:46 PM Coronary Dominance: Co-dominant csmith 03:46 PM Lesion found in Proximal RCA. Pre Stenosis: 100 Pre DAVID Flow: 0: No Flow/No perfusion csmith 03:47 PM Lesion found in Proximal LAD. Pre Stenosis: 80 Pre DAVID Flow: csmith 03:47 PM Lesion found in Mid LAD. Pre Stenosis: 100 Pre DAVID Flow: csmith 03:47 PM Lesion found in Proximal Circumflex. Pre Stenosis: 70 Pre DAVID Flow: csmith 03:47 PM Lesion found in Mid Circumflex. Pre Stenosis: 100 Pre DAVID Flow: csmith 03:48 PM Pressure channel 1 zeroed. 03:48 PM Catheter removed csmith 03:49 PM HR=57 bpm, QFVW=831/51 mmhg, SpO2=98.0 %, Comment=sr 03:49 PM 5Fr Pigtail catheter inserted over the wire DNC csmith 03:49 PM Catheter selectively placed in left ventricle csmith 03:49 PM Bolus angiogram of left Ventricle complete: 10 ml/sec for a total of 30 mls csmith 03:49 PM Recorded Pressure: LV, HR=58, Condition=Condition 1 (Left Ventricle) LV 107/6/22 03:49 PM Recorded Pressure: LV, Ao, HR=57, Condition=Condition 1 (Left Ventricle) LV 116/14/24, (Aorta) Ao 111/37/73 03:50 PM Catheter removed csmith 03:50 PM Wire removed csmith 03:50 PM Time: 15:35 Patient comfortable and pain free: Yes csmith 03:50 PM Time: 15:35LOC: 4 = Oriented but drowsy csmith 03:51 PM CTS paged csmith 03:52 PM Lesion found in 1st Marginal. Pre Stenosis: 60 Pre DAVID Flow: csmith 03:52 PM Procedure completed at 15:52 csmith 03:52 PM Did you address DAVID flow and Dominance? Yes csmith 03:52 PM Sign out completed: Radiation Dose 230 mGy Fluoro Time: 2.6 Isovue 370 - 200ml contrast 49 ml given by Jose Enrique Dickinson MD, [facility]. Complications: NoneCardiac Rehab Consult needed: YesConfirmed administered medications: Yes csmith 03:52 PM Isovue 370 - 200ml,1 Bottle(s) used. csmith 03:53 PM Arterial sheath pulled, Vasc Band closure device used and was Successful S/N. csmith 03:53 PM 10 ml air in Vasc Band. csmith 03:53 PM Estimated Blood Loss: minimal csmith 03:53 PM Post ECG Sinus Bradycardia csmith 03:53 PM Post Blood Pressure 109/51 csmith 03:53 PM 15:53 Post Pulses Right radial 1+ csmith 03:53 PM Information taught Cardiac Cath and Vasc Band csmith 03:53 PM Education needs Responsibilities of Patient in Care csmith 03:53 PM Learning barriers :None csmith 03:53 PM Education Methods Verbal csmith 03:53 PM Education evaluation Able to repeat information csmith 03:53 PM Site status No bleeding/hematoma - Rt Wrist as reported by Sites, Qi RT (R) at 15:53 csmith 03:53 PM Plavix, Effient or Brilinta given No csmith 03:54 PM Vitals capture stopped. 03:54 PM Family placed in consult room. csmith 04:05 PM Time: 15:50 Patient comfortable and pain free: Yes csmith 04:08 PM Patient out of room: 16:08 csmith 04:08 PM Report given to 2NE RN Pt taken to [facility] Room #27. 16:08 csmith 04:[address] Phan regarding consult [facility] Complications Complication None Hemodynamics Pressures Site Systolic/A Wave Diastolic/V Wave Mean LV 107 6 22 LV 116 14 24 AO 111 37 73 Post Procedure Information Blood Pressure: 109/51 mmHg Rhythm: Sinus Bradycardia Post procedural instructions were given Surgery consult for CABG Closure Device Time Device Success/Fail Mechanical Compression Successful Site Checks Time Location Status Staff Sheath In? Note 03:53 PM Rt Wrist No bleeding/hematoma Sites, Qi RT (R) Pulses Time Site Pre-Procedure Post-Procedure Note 12/25/2017 2:57:00 PM Bilateral DP 2+ 12/25/2017 2:57:00 PM Bilateral radial 2+ 3:53:00 PM Right radial 1+ Updated by Terrence Méndez RN on 12/25/2017 4:09:38 PM electronically signed on 12/25/2017 4:10:10 PM with status of Final
[2017-12-25] MEDS: (Linaclotide [Linzess] 145 MCG) PO SCH (17:19)
--- NOTE | 2017-12-25 19:10 | Cardiothoracic Consult Note ---
Date of Encounter: 12/25/17 Time of Encounter: 19:06 Assessment and Plan (1) NSTEMI (non-ST elevated myocardial infarction) Current Visit: Yes Status: Acute The assessment and plan as outlined above was discussed with the patient and/or family members who expressed understanding and agreement. All questions were answered. The patient has triple-vessel disease with preserved ventricular function. His options are medical treatment, angioplasty with PTCA or open heart surgery. His vessels do not look to be suitable for PTCA and stent placement. Both his LAD and right coronary artery or 100% blocked and appear quite small. They looked to be poor candidates to accept grafts. 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 He has slurred speech and walks with a walker and cane. This would be exacerbated by anesthesia and surgery and in my opinion would make him a prohibitive pulmonary risk. I favor medical therapy is the approach that would give him the best chance for a prolonged, symptom-free life. If surgery is deemed to be the best option in the family were to agree, it would need to be done in [place] where such things as plasmapheresis are available to treat his neurological disease. - History of Present Illness History of present illness: Mr. Lockwood is a 77 year old male The patient is a 77-year-old gentleman who has Mary [place] syndrome. He lives in assisted living and walks with a walker and cane. He was admitted with an acute exacerbation. Head CT scan was negative. MRI of the brain revealed a possible old stroke but no acute changes. He did have a positive troponin of 1.08, but this is since decreased. Echocardiogram revealed an ejection fraction of 60% and no significant valvular disease. Cardiac catheterization revealed 100% right coronary artery lesion with a small distal vessel. The LAD is also 100% and quite small. The circumflex is 70-80% and appears graftable. Past medical history is notable for diabetes on oral agents. No history of hypertension. Family history is positive for diabetes and heart disease. Social history. He lives in [place]. He is a retired local delivery truck driver. He quit smoking many years ago and does not drink alcohol. Review of systems is notable only for a possible old stroke seen on MRI. Past Med Surg Social Fam HX - Past Medical History Medical history: diabetes, hyperlipidemia Medications and Allergies Aspirin [Lo-Dose Aspirin EC] 81 mg PO DAILY 12/23/17 [History] Ezetimibe [Zetia] 10 mg PO DAILY 12/23/17 [History] Levothyroxine [Synthroid] 50 mcg PO DAILY 12/23/17 [History] Meclizine HCl [Verticalm] 25 mg PO QID 12/23/17 [History] metFORMIN [Glucophage] 500 mg PO BIDWM 12/23/17 [History] Bimatoprost [Lumigan] 1 drop BOTH EYES HS 12/24/17 [History] Linaclotide [Linzess] 145 mcg PO DAILY 12/24/17 [History] Polyethylene Glycol 3350 [MiraLAX bowel prep] 17 g PO DAILY PRN 12/24/17 [ History] Brimonidine 0.2% [Alphagan] 1 drop BOTH EYES BID 12/25/17 [History] Timolol Maleate 0.5% [Timolol Maleate 0.5%] 1 drop BOTH EYES BID 12/25/17 [ History] 3 Allergy/AdvReac Type Severity Reaction Status Date / Time simvastatin [From Zocor] AdvReac Dizziness Verified 12/24/17 11:17 All Systems Review: The remainder of the systems were reviewed and are negative Physical Examination Vital Signs, Last 4 Hours Pulse Resp BP Pulse Ox 12/25/17 18:41 59 20 151/62 97 12/25/17 18:33 57 20 130/58 99 12/25/17 18:31 57 20 130/58 98 12/25/17 17:00 56 20 134/74 100 12/25/17 16:35 57 20 125/57 100 12/25/17 16:32 56 20 113/61 98 His left pupil is somewhat dilated and he has decreased vision in the left eye. His teeth are in somewhat poor repair and he has slurred speech. Neck is supple. Trachea in the midline. No thyromegaly or carotid bruits. Lungs are clear to percussion and auscultation. Heart is in a regular rate and rhythm. No murmurs, gallops or rubs. Abdomen is benign. No tenderness, rebound or guarding. He is status post appendectomy. Extremities without edema. No saphenous vein varicosities or strippings. The cranial nerve exam reveals decreased vision in the left eye and slurred speech. He has overall generalized weakness. Results 12/25/17 04:41 12/25/17 04:41 Lab Results, Last 24 hours 12/24/17 12/25/17 12/25/17 22:46 04:41 04:41 WBC 7.1 Hgb 12.2 L Hct 35.1 L Plt Count 155 APTT 78.6 H Sodium 138 Potassium 4.1 Chloride 106 Carbon Dioxide 23 BUN 21 Creatinine 0.98 Glucose 176 H Calcium 8.5 L 12/25/17 04:41 WBC Hgb Hct Plt Count APTT 86.8 H Sodium Potassium Chloride Carbon Dioxide BUN Creatinine Glucose Calcium Consult Discharge Plan - Plan Referrals: Lynette Lutz CNP [Primary Care Provider] - 01/01/18 12:30 pm
[2017-12-25 21:01] LABS: Bilirubin,Urine Negative (Negative); Blood,Urine Negative (Negative); Clarity,Urine Clear (Clear); Color,Urine Yellow (Yellow); Glucose,Urine (UA) Normal (Normal); Ketones,Urine Negative (Negative); Leukocyte Esterase,Urine Negative (Negative); Nitrite,Urine Negative (Negative); Protein,Urine Negative (Neg-Trace); Specific Gravity,Urine > 1.030 (1.010-1.025); Urobilinogen,Urine Normal (Normal)
[2017-12-25] MEDS: Latanoprost 2.5 ML BOTTLE BOTH EYES SCH (21:13)
[2017-12-26 04:41] LABS: Basophils % 0.4 %; Eosinophils # 0.1 K/mcL (0.0-0.6); Hematocrit 32.8 % (37.5-50.1); Hemoglobin 11.2 g/dL (12.9-16.9); Immature Granulocytes % 0.2 % (0-4); Lymphocytes # 0.9 K/mcL (0.6-4.6); Mean Corpuscular HGB Conc 34.1 g/dL (31.6-35.5); Mean Corpuscular Hemoglobin 30.5 pg (28.0-33.3); Mean Corpuscular Volume 89.4 fL (83.0-100.0); Mean Platelet Volume 9.4 fL (9.4-12.4); Monocytes # 0.5 K/mcL (0.0-1.3); Monocytes % 10.9 %; Neutrophils # 3.3 K/mcL (1.6-8.9); Platelet Count 144 K/mcL (140-400); Red Blood Count 3.67 M/mcL (4.19-5.50); Red Cell Distribution Width 12.7 % (11.5-14.5); Segmented Neutrophils % 68.5 %
[2017-12-26 05:03] LABS: BUN/Creatinine Ratio 23 (6-26); Blood Urea Nitrogen 19 mg/dL (8-23); Calcium 8.1 mg/dL (8.6-10.3); Carbon Dioxide 23 mEq/L (23-29); Chloride 107 mEq/L (98-107); Glucose 134 mg/dL (70-105); Osmolality,Calculated 286 (280-300); Potassium 3.8 mEq/L (3.5-5.1); Sodium 136 mEq/L (136-145); eGFR For African Americans > 60 (> 60); eGFR For Non-African Americans > 60 (> 60)
[2017-12-26] MEDS: Heparin 25,000 UNIT/500 ML D5W 25,000 UNIT/500 ML BAG IVC SCH (05:22)
--- NOTE | 2017-12-26 07:16 | Cardiothoracic Progress Note ---
Date of Encounter: 12/26/17 Time of Encounter: 07:13 - Assessment and plan (1) NSTEMI (non-ST elevated myocardial infarction) Current Visit: Yes Status: Acute The patient and his family do not want to have open heart surgery. Both his LAD and right coronary arteries are 100% blocked and appear quite small. They looked to be poor targets for grafting. The patient has had a three-year history of neurological disease and was admitted with worsening weakness and speech problems. General anesthesia would include neuromuscular blockade and carry extremely high risk. Postoperatively, the patient would have difficulty coming off the ventilator and would probably suffer severe pulmonary problems. I would favor medical therapy only at this point. If the patient does decide on surgery, he would need to be done at a Center that could provide plasmapheresis and other treatments for his neurological disease. - Subjective Interval history: The patient has had no chest pain and no angina. Vital Signs, Last 4 Hours Temp Pulse Resp BP Pulse Ox 12/26/17 07:00 98.2 F 59 18 125/57 97 12/26/17 04:47 99.3 F 59 16 115/53 94 Clinical Data, last 8 Hours Output, Urine Amount 0 Output, Urine Amount 250 Weight 12/24/17 12/25/17 12/26/17 23:59 23:59 23:59 Weight 77.2 kg 77.5 kg 78.3 kg Lungs are clear to percussion and auscultation. Heart is in a normal sinus rhythm. - Labs 12/26/17 04:30 12/26/17 04:30 Lab Results, Last 24 hours 12/26/17 12/26/17 12/26/17 04:30 04:30 04:30 WBC 4.8 Hgb 11.2 L Hct 32.8 L Plt Count 144 APTT 78.9 H Sodium 136 Potassium 3.8 Chloride 107 Carbon Dioxide 23 BUN 19 Creatinine 0.83 Glucose 134 H Calcium 8.1 L Consult Discharge Plan - Plan Referrals: Lynette Lutz, MAITE [Primary Care Provider] - 01/01/18 12:30 pm
[2017-12-26] MEDS: Cyanocobalamin (B-12) 1,000 MCG TABLET PO SCH (08:48)
[2017-12-26] MEDS: Aspirin Enteric Coated 81 MG Tablet PO SCH (08:48)
[2017-12-26] MEDS: (Ezetimibe 10 MG) PO SCH (08:49)
[2017-12-26] MEDS: Insulin LISPRO 300 UNITS/3 ML VIAL SQ SCH ×4 (08:50→21:04)
[2017-12-26] MEDS: (Linaclotide [Linzess] 145 MCG) PO SCH (08:57)
--- NOTE | 2017-12-26 09:21 | Cardiology Progress Note ---
Date of Encounter: 12/26/17 Time of Encounter: 09:20 Assessment and Plan (1) NSTEMI (non-ST elevated myocardial infarction) Current Visit: Yes Status: Acute Per cardiology: -Troponins 1.08 (royer), 0.68, 0.69, 0.49. Status post catheterization which showed severe three-vessel CAD with left main 30%, proximal LAD 80%, mid LAD 100 %, diagonal that is partially supplying anterior wall and providing collaterals to LAD with left to left collaterals, proximal circumflex 70%, mid circumflex 100%, OM 50%, proximal RCA 100% with collaterals from left to right. Seen by CT surgery and patient not deemed a surgical candidate and patient did not want to proceed with surgery regardless. CT recommendations medical management. Patient and daughter are agreeable to plan. Has past intolerance to zocor, currently taking lipitor-- continue to monitor. On aspirin, ACEI. Previously not on beta blockers due to bradycardia. Past 24 hours average heart rate 59. Systolic blood pressure stable. Will attempt low dose beta afsaneh to optimize medical regimen. Remains chest pain-free. Can consider an outpatient setting addition of long-acting nitrate and/or Ranexa if clinically warranted. Post-MS and procedure education provided. All questions answered. Daughter reports exploring possibly going to assisted living. I had preliminary discussions with patient and daughter regarding long-term CODE STATUS and they are interested in exploring possible DNR status. Cardiology will sign off, reconsult as needed, follow-up arranged. Discussion w patient/family: The assessment and plan as outlined above was discussed with the patient and/or family members who expressed understanding and agreement. All questions were answered. Thank you for involving us in the care of your patient. Please call with any questions. Subjective Principal diagnosis: NSTEMI, CAD Interval history: Seen with daughter at bedside. Patient very hard of hearing. He denies any chest pain, shortness of breath, palpitations. Denies any concerns from his right wrist site. Objective Vital Signs, Last 4 Hours Temp Pulse Resp BP Pulse Ox 12/26/17 07:00 98.2 F 59 18 125/57 97 General: Conversant, No Apparent Distress HEENT: Atraumatic, Normocephaly, Mucus Membranes Moist, Other (TANGIRNAQ) Neck: No JVD, Normal carotid pulses Cardiac: Reg Rate and Rhythm, Normal S1 and S2, No Murmur Lungs: Normal Breath Sounds, No Wheeze, Rales, Rhonchi Neuro: Alert and responsive, No focal deficits noted Abdomen: Soft, Non-Tender Skin: No rashes noted on visualized skin, Other (Right wrist site dry and intact , no hematoma, no bleeding, radial pulse 2+ palpable) Musculoskeletal: No Chest Wall Tenderness Extremities: No Clubbing, No Cyanosis, No Edema, Normal Pulses Results 12/26/17 04:30 12/26/17 04:30 Lab Results Laboratory Tests 12/23/17 12/24/17 12/24/17 22:09 00:24 09:29 Troponin I 0.68 H* 0.69 H* 0.49 H* ITS Impressions Brain MRI 12/24/17 10:06 IMPRESSION: 1. No acute infarct or acute intracranial process identified. 2. 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 3. Mild diffuse cerebral volume loss and mild chronic small vessel ischemic changes. D/ / Murali Waite MD / Murali Waite MD Interpreting Provider: Murali Waite MD Echocardiogram 12/24/17 21:53 Impressions: LVEF 60%. Mild concentric left ventricular hypertrophy. Mild left ventricular diastolic dysfunction. Definity echo contrast was used. Normal right ventricular structure and function. Mild aortic regurgitation. Mild mitral regurgitation. Mild pulmonic regurgitation. No pulmonary hypertension. Left Ventricular Wall Motion: Rest Echo Findings All wall segments showed normal motion. Findings: Study Quality * Technically adequate exam. ECG Findings * Normal sinus rhythm. Left Ventricle * LVEF 60%. * Mild concentric left ventricular hypertrophy. * Basal sigmoid septum. * Mild left ventricular diastolic dysfunction. * Definity echo contrast was used. Right Ventricle * Normal right ventricular structure and function. Left Atrium * Normal left atrial size. Right Atrium * Normal right atrial size. Aortic Valve * Trileaflet aortic valve. * No aortic stenosis. * Mild aortic regurgitation. Mitral Valve * Mild mitral regurgitation. * Normal mitral valve structure. * No mitral stenosis. Tricuspid Valve * Tricuspid valve not well visualized. * Trace tricuspid regurgitation. Pulmonic Valve * Pulmonic valve is not well visualized. * No pulmonic stenosis. * Mild pulmonic regurgitation. Pulmonary Artery * Pulmonary artery not well visualized. Aorta * Normally sized aortic root. Pericardium * There is no pericardial effusion present. Interatrial Septum * No evidence of PFO by color Doppler. IVC * The IVC is not well evaluated. Active Medications Acetaminophen (Tylenol) 650 mg PO Q6HR PRN PRN Reason: Mild Pain/Fever Stop: 06/24/18 21:54 Aspirin (Aspirin Ec) 81 mg PO DAILY LAURITA Stop: 06/25/18 09:01 Last Admin: 12/26/17 08:48 Dose: 81 mg Atorvastatin Calcium (Lipitor) 40 mg PO HS LAURITA Stop: 06/25/18 21:01 Last Admin: 12/25/17 21:13 Dose: 40 mg Brimonidine Tartrate (Alphagan) 1 drop BOTH EYES BID LAURITA PRN Reason: Protocol Stop: 06/26/18 10:46 Last Admin: 12/26/17 08:50 Dose: 1 drop Cyanocobalamin (Vitamin B12) 1,000 mcg PO DAILY LAURITA Stop: 06/25/18 14:31 Last Admin: 12/26/17 08:48 Dose: 1,000 mcg Dextrose/Water (Dextrose 50% (Syg)) 25 ml IVP AD PRN PRN Reason: Hypoglycemia Stop: 06/24/18 21:58 Glucagon (Glucagen) 1 mg IM ONCE PRN PRN Reason: Hypoglycemia Stop: 06/24/18 21:58 Glucose (Gluctose) 15 gm PO ONCE PRN PRN Reason: Hypoglycemia Stop: 06/24/18 21:58 Glucose (Gluctose) 30 gm PO ONCE PRN PRN Reason: Hypoglycemia Stop: 06/24/18 21:58 Heparin Sodium (Porcine) (Heparin) 4,000 unit IVP Q6HR PRN PRN Reason: SEE COMMENTS Stop: 06/24/18 23:07 Heparin Sodium (Porcine) (Heparin) 2,000 unit IVP Q6H PRN PRN Reason: SEE COMMENTS Stop: 06/24/18 23:07 Last Admin: 12/24/17 16:45 Dose: 2,000 unit Hydralazine HCl (Hydralazine) 10 mg IVP Q6HR PRN PRN Reason: Hypertension Stop: 06/24/18 21:58 Dextrose (Dextrose 5%) 1,000 mls @ 100 mls/hr IVC .Q10H PRN PRN Reason: HYPOGLYCEMIA Stop: 06/24/18 21:58 Heparin Sodium/Dextrose (Heparin 25,000 Unit/500 Ml D5w) 25,000 unit in 500 mls @ 18.528 mls/hr IVC .Q24H LAURITA; 12 UNIT/KG/HR PRN Reason: Protocol Stop: 06/24/18 23:16 Last Admin: 12/26/17 05:22 Dose: 13.92 unit/kg/hr, 21.5 mls/hr Insulin Human Lispro (Humalog) 0 units SQ HS LAURITA PRN Reason: Protocol Stop: 06/25/18 21:01 Last Admin: 12/25/17 21:13 Dose: Not Given Insulin Human Lispro (Humalog) 0 units SQ TIDAC LAURITA PRN Reason: Protocol Stop: 06/25/18 07:31 Last Admin: 12/26/17 08:50 Dose: Not Given Latanoprost (Xalatan) 1 drop BOTH EYES HS [facility] Stop: 06/25/18 15:46 Last Admin: 12/25/17 21:13 Dose: 1 drop Levothyroxine Sodium (Synthroid) 50 mcg PO 0630 LAURITA Stop: 06/25/18 09:01 Last Admin: 12/26/17 05:22 Dose: 50 mcg Lisinopril (Zestril) 5 mg PO DAILY LAURITA PRN Reason: Protocol Stop: 06/25/18 12:01 Last Admin: 12/26/17 08:48 Dose: 5 mg Meclizine HCl (Antivert) 25 mg PO QID LAURITA Stop: 06/25/18 09:01 Last Admin: 12/26/17 08:48 Dose: 25 mg Naloxone HCl (Narcan) 0.4 mg IVP Q2MIN PRN PRN Reason: SEE COMMENTS Stop: 06/24/18 21:54 Ondansetron HCl (Zofran) 4 mg IVP Q6HR PRN; Protocol PRN Reason: Nausea And Vomiting Stop: 06/26/18 16:01 Pharmacy Profile Note (Patient Taking Own Medication) 0 each PO DAILY LAURITA Stop: 06/25/18 09:01 Last Admin: 12/26/17 08:49 Dose: 1 each Pharmacy Profile Note (Patient Taking Own Medication) 1 each PO DAILY LAURITA Stop: 06/26/18 13:38 Last Admin: 12/26/17 08:57 Dose: Not Given Timolol Maleate (Timolol Maleate 0.5%) 1 drop BOTH EYES BID LAURITA PRN Reason: Protocol Stop: 06/26/18 10:46 Last Admin: 12/26/17 08:51 Dose: 1 drop - Imaging and Cardiology Echo: report reviewed Cardiac cath: report reviewed - EKG Interpretation EKG results cardiology: other (Telemetry shows average heart rate is 24 hours 59 , sinus rhythm to sinus bradycardia) Consult Discharge Plan - Plan Instructions: Myocardial Infarction (DC), Diabetes Mellitus Type 2 in Adults ( DC) Referrals: Lynette Lutz CNP [Primary Care Provider] - 01/01/18 12:30 pm
[2017-12-26] MEDS ORDERED: Nitroglycerin 0.4 MG TAB.SUBL SL PRN (11:24)
--- NOTE | 2017-12-26 13:36 | Internal Med Progress Note ---
<Torres Rome - Last Filed: 12/26/17 13:34> Date of Encounter: 12/26/17 Time of Encounter: 13:34 - Assessment and plan (1) NSTEMI (non-ST elevated myocardial infarction) Current Visit: Yes Status: Acute Assessment and plan: No overt chest pain; possibly atypical presentation given patient's history of diabetes. Troponins at [place] was 1.08; down trending x3 during present hospitalization. Repeat EKG with ST depressions in V3, V4, and V5. - Cardiology following - [facility] complete (see report); significant multi-vessel disease some with full occlusion - CT surg saw pt and suggested either medical management or transfer for surgery ; opting for medical management rather than CABG - Likely discharge tomorrow; pt & family considering Assisted Living placement - Started on Lopressor 12.5mg BID; monitoring heart rate - Ultimately needs to be d/c with recommended meds ECHO: LVEF 60%. Mild concentric left ventricular hypertrophy. Mild left ventricular diastolic dysfunction. Normal right ventricular structure and function. Mild aortic regurgitation, mild mitral regurgitation, mild pulmonic regurgitation. No pulmonary hypertension. (2) Dysarthria Current Visit: Yes Status: Resolved Assessment and plan: Slow speech according to son and daughter. Patient has been generally weak and fatigued; does have baseline fatigue. Doubt true neurologic origin. No exams have been negative notwithstanding known chronic deficits. CT of the head was negative. MRI of the head was negative for acute infarctions; see report. MRI 12/24/17 1. No acute infarct or acute intracranial process identified. 2. 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 3. Mild diffuse cerebral volume loss and mild chronic small vessel ischemic changes. (3) Diabetes mellitus Current Visit: Yes Status: Acute Assessment and plan: Continue low dose SSI. Accu-Cheks. A1C check on current hospitalization was 5.9%. 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 Sees neurologist for this according to patient's daughter. Not acute. (5) DVT prophylaxis Current Visit: Yes Status: Acute Assessment and plan: SCDs - Time Spent With Patient Total time spent is greater than 50% in coordination of care (as documented) at patient's floor/unit and/or counseling patient: - Subjective Interval history: Comfortable and bedside chair without any acute complaints. Family present with questions regarding imaging results; discussed MRI, CT, and ECHO findings. LHF performed demonstrating full multi-vessel occlusion (see cath report). CT surgery saw patient and recommended medical management vs transfer to larger center that could manage concurrent plasmapheresis per need. Pt and family opted toward medical management. Considering LTC discharge. Will monitor for at least one more day. - Constitutional Vitals: Temp Pulse Resp BP Pulse Ox 98.2 F 59 18 125/57 97 12/26/17 07:00 12/26/17 07:00 12/26/17 07:00 12/26/17 07:00 12/26/17 07:00 Stable exam from 12/25/17 CONSTITUTIONAL: Alert and oriented X3, well-nourished, well appearing, in no apparent distress HEAD: Normocephalic; atraumatic. EYES: PER, no scleral icterus, no drainage, no conjunctival injection NOSE: The nose is normal in appearance without rhinorrhea Oropharynx: pink/moist RESP: NRD without use of accessory musculature, CTA b/l with no wheezes/rales/ rhonchi CARD: Regular rhythm, without murmurs, rubs, or gallop SKIN: normal appearance, no pallor/diaphoresis,mottling,jaundice,cyanosis EXT: Rad pulses 2+ and symmetrical; no lateralizing edema; no other lesions seen Neuro: no facial asymmetry, speech deficits, or gross motor weakness in any extremity PSYCH: appropriate mood/affect Internal Medicine: Result - Labs CBC & Chem 7: 12/26/17 04:30 12/26/17 04:30 Labs: Short CBC 12/26/17 Range/Units 04:30 WBC 4.8 (4.3-11.1) K/mcL Hgb 11.2 L (12.9-16.9) g/dL Hct 32.8 L (37.5-50.1) % Plt Count 144 (140-400) K/mcL Neutrophils # 3.3 (1.6-8.9) K/mcL BMP 12/26/17 04:30 Sodium 136 Potassium 3.8 Chloride 107 Carbon Dioxide 23 BUN 19 Creatinine 0.83 Glucose 134 H Calcium 8.1 L Urine 12/25/17 Range/Units 20:34 Urine Color Yellow (Yellow) Urine Clarity Clear (Clear) Urine pH 6.0 (5.0-8.0) pH Units Ur Specific [place] > 1.030 H (1.010-1.025) Urine Protein Negative (Neg-Trace) mg/dL Urine Glucose (UA) Normal (Normal) mg/dL - ABG Interpretation ABG results: PT/INR, D-dimer PT 13.5 Seconds (9.4-12.1) H 12/24/17 00:24 Consult Discharge Plan - Plan Instructions: Myocardial Infarction (DC), Diabetes Mellitus Type 2 in Adults ( DC) Referrals: Lynette Lutz CNP [Primary Care Provider] - 01/01/18 12:30 pm <Joaquín Morales - Last Filed: 12/26/17 16:16> Date of Encounter: 12/26/17 - Assessment and plan (1) Diabetes mellitus Current Visit: Yes Status: Acute Qualifiers: Diabetes mellitus type: type 2 Diabetes mellitus assisted insulin use: without rat exterminator use Diabetes mellitus complication status: with ophthalmic complications Diabetes mellitus complication detail: with other ophthalmic complication Qualified Code(s): 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 (3) NSTEMI (non-ST elevated myocardial infarction) Current Visit: Yes Status: Acute (4) Dysarthria Current Visit: Yes Status: Resolved (5) DVT prophylaxis Current Visit: Yes Status: Acute - Time Spent With Patient Total time spent is greater than 50% in coordination of care (as documented) at patient's floor/unit and/or counseling patient: - Constitutional Vitals: Temp Pulse Resp BP Pulse Ox 98.5 F 61 18 147/79 97 12/26/17 15:00 12/26/17 15:00 12/26/17 15:00 12/26/17 15:00 12/26/17 15:00 Internal Medicine: Result - Labs CBC & Chem 7: 12/26/17 04:30 12/26/17 04:30 Labs: Short CBC 12/26/17 Range/Units 04:30 WBC 4.8 (4.3-11.1) K/mcL Hgb 11.2 L (12.9-16.9) g/dL Hct 32.8 L (37.5-50.1) % Plt Count 144 (140-400) K/mcL Neutrophils # 3.3 (1.6-8.9) K/mcL BMP 12/26/17 04:30 Sodium 136 Potassium 3.8 Chloride 107 Carbon Dioxide 23 BUN 19 Creatinine 0.83 Glucose 134 H Calcium 8.1 L Urine 12/25/17 Range/Units 20:34 Urine Color Yellow (Yellow) Urine Clarity Clear (Clear) Urine pH 6.0 (5.0-8.0) pH Units Ur Specific [place] > 1.030 H (1.010-1.025) Urine Protein Negative (Neg-Trace) mg/dL Urine Glucose (UA) Normal (Normal) mg/dL - ABG Interpretation ABG results: PT/INR, D-dimer PT 13.5 Seconds (9.4-12.1) H 12/24/17 00:24 - Attending Attestation I examined this patient and my medical decision-making was reviewed with the Resident Physician. I agree with the documented findings, disposition and treatment plan as described except to the extent set forth below. He is seen and examined at the bedside with family.. He is admitted and being managed for CAD with NSTEMI, Suspect TIA based on symptoms of dysarthria which has resolved prior to arrival. Echocardiogram showed LVEF 60%, mild LVH, LVDD, normal wall motion He is status post catheterization which showed severe three-vessel CAD with left main 30%, proximal LAD 80%, mid LAD 100%, diagonal that is partially supplying anterior wall and providing collaterals to LAD with left to left collaterals, proximal circumflex 70%, mid circumflex 100%, OM 50%, proximal RCA 100% with collaterals from left to right. Seen by CT surgery and patient not deemed a surgical candidate and patient did not want to proceed with surgery regardless. Physical examination is negative for neurologic deficits, power at least 4/5 in all extremities, no speech deficits, chest is clear to auscultation, heart sounds S1-S2. Plan is to add low dose BB, continue ACEI, ASA, Statin, continue other meds. Patient is medically stable to be discharged home, family is requesting one more night stay to plan disposition as they do not want the patient to go back to his own home-CSM and SW aware and will meet with family Continue other current management PTOT jessica noted -for home health Rest of details as in the resident physician's documentation
[2017-12-26] MEDS: Acetaminophen 325 MG TABLET PO PRN (21:02)
[2017-12-26] MEDS: Latanoprost 2.5 ML BOTTLE BOTH EYES SCH (21:03)
[2017-12-27 05:18] LABS: Basophils % 0.4 %; Eosinophils # 0.1 K/mcL (0.0-0.6); Eosinophils % 2.4 %; Hematocrit 34.7 % (37.5-50.1); Hemoglobin 11.8 g/dL (12.9-16.9); Immature Granulocytes % 0.4 % (0-4); Lymphocytes # 1.3 K/mcL (0.6-4.6); Lymphocytes % 26.9 %; Mean Corpuscular Hemoglobin 30.5 pg (28.0-33.3); Mean Corpuscular Volume 89.7 fL (83.0-100.0); Mean Platelet Volume 9.7 fL (9.4-12.4); Monocytes # 0.6 K/mcL (0.0-1.3); Monocytes % 12.7 %; Neutrophils # 2.7 K/mcL (1.6-8.9); Platelet Count 133 K/mcL (140-400); Red Blood Count 3.87 M/mcL (4.19-5.50); Red Cell Distribution Width 12.7 % (11.5-14.5); Segmented Neutrophils % 57.2 %
[2017-12-27 05:33] LABS: BUN/Creatinine Ratio 21 (6-26); Blood Urea Nitrogen 20 mg/dL (8-23); Calcium 8.3 mg/dL (8.6-10.3); Carbon Dioxide 24 mEq/L (23-29); Chloride 107 mEq/L (98-107); Glucose 123 mg/dL (70-105); Osmolality,Calculated 292 (280-300); Potassium 3.8 mEq/L (3.5-5.1); Sodium 139 mEq/L (136-145); eGFR For African Americans > 60 (> 60); eGFR For Non-African Americans > 60 (> 60)
[2017-12-27] MEDS ORDERED: Azithromycin 250 MG TABLET PO SCH (09:45)
[2017-12-27] MEDS: Insulin LISPRO 300 UNITS/3 ML VIAL SQ SCH ×2 (09:54→12:29)
[2017-12-27] MEDS: Cyanocobalamin (B-12) 1,000 MCG TABLET PO SCH (10:05)
[2017-12-27] MEDS: Aspirin Enteric Coated 81 MG Tablet PO SCH (10:05)
[2017-12-27] MEDS: (Ezetimibe 10 MG) PO SCH (10:10)
[2017-12-27] MEDS: (Linaclotide [Linzess] 145 MCG) PO SCH (10:10)
--- NOTE | 2017-12-27 10:34 | Discharge Summary ---
<Mac Borjas - Last Filed: 12/27/17 15:45> - NOTES TO OUTPATIENT PROVIDER Notes to Outpatient Provider: Started on Lopressor 12.5mg BID due to bradycardia , aspirin, ACEI. Can consider addition of long-acting nitrate and/or Ranexa if clinically warranted when patient follows up with PCP in 1-2 weeks. Date of Encounter: 12/27/17 Time of Encounter: 10:33 - Discharge Diagnosis (1) NSTEMI (non-ST elevated myocardial infarction) Priority: Primary Status: Acute Assessment and Plan: No overt chest pain; possibly atypical presentation given patient's history of diabetes. Troponins at [facility] was 1.08; down trending x3 during present hospitalization. Repeat EKG with ST depressions in V3, V4, and V5. Cardiology consulted: - C complete (see report); significant multi-vessel disease some with full occlusion - CT surg saw pt and suggested either medical management or transfer for surgery ; opting for medical management rather than CABG - Started on Lopressor 12.5mg BID; monitoring heart rate - Ultimately needs to be d/c with recommended meds ECHO: LVEF 60%. Mild concentric left ventricular hypertrophy. Mild left ventricular diastolic dysfunction. Normal right ventricular structure and function. Mild aortic regurgitation, mild mitral regurgitation, mild pulmonic regurgitation. No pulmonary hypertension. (2) HTN (hypertension) Priority: Secondary Status: Acute Assessment and Plan: Continue HTN meds Qualifiers: Hypertension type: essential hypertension Qualified Code(s): I10 - Essential (primary) hypertension (3) Dysarthria Priority: Secondary Status: Resolved Assessment and Plan: Slow speech according to son and daughter. Patient has been generally weak and fatigued; does have baseline fatigue. Doubt true neurologic origin. No exams have been negative notwithstanding known chronic deficits. CT of the head was negative. MRI of the head was negative for acute infarctions; see report. MRI 12/24/17 1. No acute infarct or acute intracranial process identified. 2. 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 3. Mild diffuse cerebral volume loss and mild chronic small vessel ischemic changes. (4) Diabetes mellitus Priority: Secondary Status: Acute Assessment and Plan: Continue low dose SSI. Accu-Cheks. A1C check on current hospitalization was 5.9%. 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 Sees neurologist for this according to patient's daughter. Not acute. (6) DVT prophylaxis Priority: Secondary Status: Acute Assessment and Plan: SCDs (7) URI (upper respiratory infection) Priority: Secondary Status: Acute Assessment and Plan: Azithromycin 5 days Follow up with PCP in 1-2 weeks Qualifiers: URI type: unspecified viral URI Qualified Code(s): J06.9 - Acute upper respiratory infection, unspecified Hospital course: Mr. Lockwood is a 77 year old male with a PMH of hyperlipidemia, DM, hypothyroidism, [place] syndrome, peripheral neuropathy, vertigo who was on the phone with his son who noted slurred speech and said it sounded "like his dad was drunk." Son called daughter who then went and checked on her father. Daughter states his speech was different. Patient was also complaining of increased weakness for a few days and walks with a walker and cane. In the ED , CT scan was negative. MRI of the brain revealed a possible old stroke but no acute changes. He did have a positive troponin of 1.08, but this is since decreased. Echocardiogram revealed an ejection fraction of 60% and no significant valvular disease. 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 The LAD is also 100% and quite small. The circumflex is 70-80% and appears graftable. Cardiothoracic surgery was consulted and suggested either medical management or transfer for surgery; patient and family opted for medical management rather than CABG. Started on Lopressor 12.5mg BID due to bradycardia, aspirin, ACEI. Can consider an outpatient setting addition of long- acting nitrate and/or Ranexa if clinically warranted when patient follow up wit PCP in 1-2 weeks. Discharge discussed with: patient, family, social work, case management - Time Spent with Patient Total time spent providing and/or coordinating discharge services: - Discharge Medications Prescriptions: Nitroglycerin 0.4 mg SL Q5MIN PRN #25 tab.subl PRN Reason: Chest Pain Atorvastatin [Lipitor] 40 mg PO HS #30 tablet Azithromycin [Zithromax] 500 mg PO Q24H #5 tablet Cyanocobalamin (B-12) [Vitamin B12] 1,000 mcg PO DAILY #30 tablet Lisinopril [Zestril] 5 mg PO DAILY #30 tablet Metoprolol [Lopressor] 12.5 mg PO BID #30 tablet Home Medications: Aspirin [Lo-Dose Aspirin EC] 81 mg PO DAILY 12/23/17 [History] Ezetimibe [Zetia] 10 mg PO DAILY 12/23/17 [History] Levothyroxine [Synthroid] 50 mcg PO DAILY 12/23/17 [History] Meclizine HCl [Verticalm] 25 mg PO QID 12/23/17 [History] metFORMIN [Glucophage] 500 mg PO BIDWM 12/23/17 [History] Bimatoprost [Lumigan] 1 drop BOTH EYES HS 12/24/17 [History] Linaclotide [Linzess] 145 mcg PO DAILY 12/24/17 [History] Polyethylene Glycol 3350 [MiraLAX bowel prep] 17 g PO DAILY PRN 12/24/17 [ History] Brimonidine 0.2% [Alphagan] 1 drop BOTH EYES BID 12/25/17 [History] Timolol Maleate 0.5% 1 drop BOTH EYES BID 12/25/17 [History] Acetaminophen [Tylenol] 650 mg PO Q6HR PRN tablet 12/27/17 [Rx] Atorvastatin [Lipitor] 40 mg PO HS #30 tablet 12/27/17 [Rx] Azithromycin [Zithromax] 500 mg PO Q24H #5 tablet 12/27/17 [Rx] Cyanocobalamin (B-12) [Vitamin B12] 1,000 mcg PO DAILY #30 tablet 12/27/17 [Rx] Lisinopril [Zestril] 5 mg PO DAILY #30 tablet 12/27/17 [Rx] Metoprolol [Lopressor] 12.5 mg PO BID #30 tablet 12/27/17 [Rx] Nitroglycerin 0.4 mg SL Q5MIN PRN #25 tab.subl 12/27/17 [Rx] Allergies/Adverse Reactions: 3 Allergy/AdvReac Type Severity Reaction Status Date / Time simvastatin [From Zocor] AdvReac Dizziness Verified 12/24/17 11:17 Date of admission: 12/23/17 19:51 Primary care physician: Lynette Lutz CNP Consults: 12/23/17 21:53 Consult to Occupational Therapy [CONS] Routine Comment: Evaluate, develop and implement POC Reason for Consult: therapy/placement needs Does patient have active BEDREST order?: No Is patient medically & hemodynamically stable?: Yes Consult to Physical Therapy [CONS] Routine Comment: Evaluate, develop and implement POC Reason for Consult: PT eval Does patient have active BEDREST order?: No Is patient medically & hemodynamically stable?: Yes 12/23/17 23:10 Consult to Cardiology [CONS] Routine Comment: Consulting Provider: Cardiology Debby Reason for Consult: NSTEMI Call Completed: No 12/25/17 11:12 Consult to Cardiac Rehabilitation-Phase1 [CONS] Routine Comment: Reason for Consult: NSTEMI Call Completed: No 12/25/17 16:02 Consult to Cardiothoracic Surgery [CONS] Routine Consulting Provider: Cardiothoracic Surgery Debby Reason for Consult: open heart Call Completed: Yes 12/26/17 15:26 Consult to Self Propelled Hot Mix Roller Operator [CONS] Routine Reason for SW Consult: wants SNF at discharge; Kia already aware and worked on Discharging clinician: Mac Borjas Anticipated date of discharge: 12/27/17 - Constitutional Vitals: Temp Pulse Resp BP Pulse Ox 99.2 F 56 15 148/59 96 12/27/17 06:39 12/27/17 06:39 12/27/17 06:39 12/27/17 06:39 12/27/17 06:39 General appearance: Present: cooperative, A&O X 3, pleasant, no acute distress, answers questions appropriately - Head Head exam: Present: atraumatic, normocephalic - Eye Eye exam: Present: PERRL, conjuntiva pink, sclera anicteric Pupils: Present: PERRL - ENT ENT exam: Present: mucous membranes moist, normal oropharynx - Neck Neck exam general surgery: Present: supple, trachea midline. Absent: lymphadenopathy - Respiratory Respiratory exam: Present: CTAB. Absent: accessory muscle use, rales, rhonchi, wheezes - Cardiovascular Cardiovascular exam: Present: RRR, +S1, +S2. Absent: diastolic murmur, gallop, rubs, systolic murmur - GI/Abdominal GI/Abdominal exam: Present: normal bowel sounds, soft, no peritoneal signs. Absent: distended, tenderness - Extremities Exam Extremities exam: Present: warm, radial pulses palpable and symmetrical. Absent : calf tenderness, cyanotic, pedal edema - Back Exam Back exam: Present: normal inspection. Absent: tenderness - Neurological Exam Neurological exam: Present: CN II-XII intact, oriented X3, no focal deficits, strengths equal and symetr throughout (4/5 all extremities). Absent: pronater drift, facial droop, speech deficit - Psychiatric Psychiatric exam: Present: normal affect, normal mood - Skin Skin exam: Present: dry, intact, warm - Patient Status Disposition: Transfer SNF Condition: Good Functional capacity at discharge: uses cane/walker Overall status at discharge: patient is progressing back to baseline - Discharge Instructions Instructions: Myocardial Infarction (DC), Diabetes Mellitus Type 2 in Adults ( DC) Follow Up With: Lynette Lutz CNP [Primary Care Provider] - 01/01/18 12:30 pm - Diet and Activity Activity: ambulate only with your walker Diet: other (Cardiac diet) - VTE Documentation of Mechanical Device: Intermittent pneumatic compression device <Joaquín Morales - Last Filed: 12/27/17 17:55> Date of Encounter: 12/27/17 - Discharge Diagnosis (1) Diabetes mellitus Status: Acute Qualifiers: Diabetes mellitus type: type 2 Diabetes mellitus half-way insulin use: without half-way use Diabetes mellitus complication status: with ophthalmic complications Diabetes mellitus complication detail: with other ophthalmic complication Qualified Code(s): 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 Lockwood is a 77 year old male - Time Spent with Patient Total time spent providing and/or coordinating discharge services: Greater than 30 minutes Date of admission: 12/23/17 19:51 Primary care physician: Lynette Lutz CNP Consults: 12/23/17 21:53 Consult to Occupational Therapy [CONS] Routine Comment: Evaluate, develop and implement POC Reason for Consult: therapy/placement needs Does patient have active BEDREST order?: No Is patient medically & hemodynamically stable?: Yes Consult to Physical Therapy [CONS] Routine Comment: Evaluate, develop and implement POC Reason for Consult: PT eval Does patient have active BEDREST order?: No Is patient medically & hemodynamically stable?: Yes 12/23/17 23:10 Consult to Cardiology [CONS] Routine Comment: Consulting Provider: Cardiology Debby Reason for Consult: NSTEMI Call Completed: No 12/25/17 11:12 Consult to Cardiac Rehabilitation-Phase1 [CONS] Routine Comment: Reason for Consult: NSTEMI Call Completed: No 12/25/17 16:02 Consult to Cardiothoracic Surgery [CONS] Routine Consulting Provider: Cardiothoracic Surgery Debby Reason for Consult: open heart Call Completed: Yes 12/26/17 15:26 Consult to Self Propelled Hot Mix Roller Operator [CONS] Routine Reason for SW Consult: wants SNF at discharge; Kia already aware and worked on - Constitutional Vitals: Temp Pulse Resp BP Pulse Ox 99.2 F 56 15 148/59 96 12/27/17 06:39 12/27/17 06:39 12/27/17 06:39 12/27/17 06:39 12/27/17 06:39 - Attending Attestation I examined this patient 12/27, and my medical decision-making was reviewed with the Resident Physician. I agree with the documented findings, disposition and treatment plan as described except to the extent set forth below. Patient with no new events overnight. One episode of low-grade fever with cough. Patient states is improving. Chest is clear to auscultation bilaterally , patient is not tachypneic not hypoxic. He is medically stable to be discharged to the group home facility with azithromycin for treatment of acute bronchitis. Continue other medications. Rest of details as in the resident physicians documentation.
--- NOTE | 2017-12-27 12:08 | Physician Discharge Referral ---
ExtendedCare Referral Info Transfer To: SNF Provider in Charge: Dr. 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 (6) URI (upper respiratory infection) Priority: Secondary Status: Acute (7) DVT prophylaxis Priority: Secondary Status: Acute Prognosis: Good Aware of Diagnosis: Patient, Family Aware of Prognosis: Patient, Family - Transfer Medications Prescriptions: Nitroglycerin 0.4 mg SL Q5MIN PRN #25 tab.subl PRN Reason: Chest Pain Atorvastatin [Lipitor] 40 mg PO HS #30 tablet Azithromycin [Zithromax] 500 mg PO Q24H #5 tablet Cyanocobalamin (B-12) [Vitamin B12] 1,000 mcg PO DAILY #30 tablet Lisinopril [Zestril] 5 mg PO DAILY #30 tablet Metoprolol [Lopressor] 12.5 mg PO BID #30 tablet Home Medications: Aspirin [Lo-Dose Aspirin EC] 81 mg PO DAILY 12/23/17 [History] Ezetimibe [Zetia] 10 mg PO DAILY 12/23/17 [History] Levothyroxine [Synthroid] 50 mcg PO DAILY 12/23/17 [History] Meclizine HCl [Verticalm] 25 mg PO QID 12/23/17 [History] metFORMIN [Glucophage] 500 mg PO BIDWM 12/23/17 [History] Bimatoprost [Lumigan] 1 drop BOTH EYES HS 12/24/17 [History] Linaclotide [Linzess] 145 mcg PO DAILY 12/24/17 [History] Polyethylene Glycol 3350 [MiraLAX bowel prep] 17 g PO DAILY PRN 12/24/17 [ History] Brimonidine 0.2% [Alphagan] 1 drop BOTH EYES BID 12/25/17 [History] Timolol Maleate 0.5% 1 drop BOTH EYES BID 12/25/17 [History] Acetaminophen [Tylenol] 650 mg PO Q6HR PRN tablet 12/27/17 [Rx] Atorvastatin [Lipitor] 40 mg PO HS #30 tablet 12/27/17 [Rx] Azithromycin [Zithromax] 500 mg PO Q24H #5 tablet 12/27/17 [Rx] Cyanocobalamin (B-12) [Vitamin B12] 1,000 mcg PO DAILY #30 tablet 12/27/17 [Rx] Lisinopril [Zestril] 5 mg PO DAILY #30 tablet 12/27/17 [Rx] Metoprolol [Lopressor] 12.5 mg PO BID #30 tablet 12/27/17 [Rx] Nitroglycerin 0.4 mg SL Q5MIN PRN #25 tab.subl 12/27/17 [Rx] Allergies/Adverse Reactions: 3 Allergy/AdvReac Type Severity Reaction Status Date / Time simvastatin [From Zocor] AdvReac Dizziness Verified 12/24/17 11:17 - Respiratory Orders Smoking Cessation: Smoking cessation has been advised. For more information, call the [facility] Quit Line at 2-849-BFHH-NOW. - Ancillary Orders May use pressure relief devices daily prn - Advance Directives Code Status: Full Code - Mobility Orders Chair, Ambulate - Rehabiliation Orders Rehab Potential: Good Rehab Orders: ROM Exercises, Evaluation for Physical Therapy, Evaluation for Occupational Therapy - Treatments Skin tear care topically daily PRN per policy, May check for fecal impaction rectally daily PRN, Fleet enema rectally every other day PRN cleansing purposes - Diet Orders Cardiac CERTIFICATION: I certify that the transfer of the above named patient to an Extended Care Facility is necessary for the continuing treatment of the diagnosis listed. The above information is true and accurate reflection of patient's current condition. Confidential - Redisclosure prohibited without a patient's written consent.
[2017-12-27] MEDS: Acetaminophen 325 MG TABLET PO PRN (12:28)
== END 2017-12-27 13:39 | DRG 281 ==
LOC: SUATTDRO 19:51 → 2NENU 19:51
PROVIDERS: ADMIT Hospitalist; ATTEND Internal Medicine

== ENCOUNTER 2019-09-20 18:04 | Inpatient (IN) ==
[2019-09-20] MEDS ORDERED: Aspirin 81 MG TAB.CHEW PO ONE (18:34)
[2019-09-20 18:43] LABS: Basophils % 0.4 %; Eosinophils % 0.1 %; Hematocrit 35.4 % (37.5-50.1); Immature Granulocytes % 0.4 % (0-4); Lymphocytes # 1.2 K/mcL (0.6-4.6); Lymphocytes % 12.6 %; Mean Corpuscular HGB Conc 33.9 g/dL (31.6-35.5); Mean Corpuscular Hemoglobin 31.7 pg (28.0-33.3); Mean Corpuscular Volume 93.7 fL (83.0-100.0); Mean Platelet Volume 9.5 fL (9.4-12.4); Monocytes # 0.8 K/mcL (0.0-1.3); Monocytes % 8.1 %; Neutrophils # 7.7 K/mcL (1.6-8.9); Platelet Count 186 K/mcL (140-400); Red Blood Count 3.78 M/mcL (4.19-5.50); Red Cell Distribution Width 13.2 % (11.5-14.5); Segmented Neutrophils % 78.4 %; White Blood Count 9.9 K/mcL (4.3-11.1)
[2019-09-20 18:50] LABS: INR 1.2; Prothrombin Time 13.7 Seconds (9.4-12.1)
[2019-09-20 18:53] LABS: Activated Partial Thrombo Time 30.2 Seconds (26.0-36.0)
[2019-09-20 19:09] LABS: BUN/Creatinine Ratio 23 (6-26); Blood Urea Nitrogen 25 mg/dL (8-23); Calcium 8.8 mg/dL (8.6-10.3); Carbon Dioxide 20 mEq/L (23-29); Chloride 106 mEq/L (98-107); Glucose 151 mg/dL (70-105); Osmolality,Calculated 289 (280-300); Potassium 4.1 mEq/L (3.5-5.1); Sodium 136 mEq/L (136-145); eGFR For African Americans > 60 (> 60); eGFR For Non-African Americans > 60 (> 60)
[2019-09-20 19:19] LABS: Troponin I 2.84 ng/mL (< 0.04)
[2019-09-20] MEDS ORDERED: *HR* Heparin 5,000 UNIT/ML VIAL IVP PRN ×2 (20:39)
[2019-09-20] MEDS ORDERED: *HR* Heparin 5,000 UNIT/ML VIAL IVP ONE (20:39)
[2019-09-20] MEDS ORDERED: Heparin 25,000 UNIT/250 ML D5W 25,000 UNIT/250 ML IV.SOLN IVC SCH (20:45)
[2019-09-20] MEDS ORDERED: Naloxone 0.4 MG/ML INJ IVP PRN (21:54)
[2019-09-20] MEDS ORDERED: Nitroglycerin 0.4 MG TAB.SUBL SL PRN (21:57)
[2019-09-21 00:51] LABS: Basophils % 0.3 %; Hematocrit 34.3 % (37.5-50.1); Hemoglobin 11.9 g/dL (12.9-16.9); Immature Granulocytes % 0.5 % (0-4); Lymphocytes # 1.2 K/mcL (0.6-4.6); Lymphocytes % 12.4 %; Mean Corpuscular HGB Conc 34.7 g/dL (31.6-35.5); Mean Corpuscular Hemoglobin 31.1 pg (28.0-33.3); Mean Corpuscular Volume 89.6 fL (83.0-100.0); Mean Platelet Volume 9.4 fL (9.4-12.4); Monocytes # 0.9 K/mcL (0.0-1.3); Monocytes % 9.3 %; Neutrophils # 7.4 K/mcL (1.6-8.9); Platelet Count 193 K/mcL (140-400); Red Blood Count 3.83 M/mcL (4.19-5.50); Red Cell Distribution Width 13.2 % (11.5-14.5); Segmented Neutrophils % 77.5 %; White Blood Count 9.6 K/mcL (4.3-11.1)
[2019-09-21 01:13] LABS: % Iron Saturation 6 % (20-55); Alanine Aminotransferase 23 Units/L (7-52); Albumin 3.5 g/dL (3.5-5.7); Albumin/Globulin Ratio 1.5 (1.1-2.2); Alkaline Phosphatase 27 Units/L (34-104); Aspartate Amino Transferase 111 Units/L (13-39); BUN/Creatinine Ratio 25 (6-26); Bilirubin,Total 1.2 mg/dL (0.3-1.0); Blood Urea Nitrogen 29 mg/dL (8-23); Calcium 8.4 mg/dL (8.6-10.3); Carbon Dioxide 19 mEq/L (23-29); Chloride 107 mEq/L (98-107); Chol/HDL Ratio 3.6 (0-4.9); Cholesterol 112 mg/dL (< 200); Globulin 2.3 g/dL (2.4-3.5); Glucose 171 mg/dL (70-105); HDL Cholesterol 31 mg/dL (40-59); Iron 14 mcg/dL (65-175); LDL Cholesterol,Calculated 69 mg/dL (0-99); Magnesium 1.8 mg/dL (1.6-2.6); Osmolality,Calculated 292 (280-300); Phosphorous 3.6 mg/dL (2.7-4.5); Potassium 3.9 mEq/L (3.5-5.1); Sodium 136 mEq/L (136-145); Total Protein 5.8 g/dL (6.4-8.9); Transferrin 171 mg/dL (203-362); Triglycerides 60 mg/dL (< 150); eGFR For African Americans > 60 (> 60); eGFR For Non-African Americans > 60 (> 60)
[2019-09-21 01:38] LABS: Ferritin 244 ng/mL (20-250)
[2019-09-21 07:32] LABS: Estimated Average Glucose 120 mg/dl
[2019-09-21] MEDS ORDERED: Aspirin Enteric Coated 81 MG Tablet PO SCH (09:00)
[2019-09-21] MEDS ORDERED: Perflutren Lipid Microsphere 1.3 ML in 0.9 % Sodium Chloride 8.7 ML IVP ONE (09:43)
[2019-09-21 15:16] VITALS: BP 104/62
== END 2019-09-21 16:38 | disposition critical access hospital (66) | DRG 281 ==
LOC: 3BNU 18:04 → EMEROOARM 18:04 → SUATTDRO 21:03 → 3BNU 21:38
PROVIDERS: ADMIT Internal Medicine; ATTEND Internal Medicine